=== PATIENT | female | born 1945 | race Caucasian/White ===

== ENCOUNTER 2020-04-19 06:23 | Outpatient (NON) | payer MEDICARE, SELFPAY ==
[2020-04-19 06:40] LABS: Hematocrit 34.5 % (35.0-42.0); Hemoglobin 10.8 g/dL (11.7-13.8); Mean Corpuscular HGB Conc 31.3 g/dL (32.0-36.0); Mean Corpuscular Hemoglobin 27.7 pg (27.0-31.0); Mean Corpuscular Volume 88.5 fL (78.0-102.0); Platelet Count Result 388 K/mm3 (150-420); Red Cell Distribution Width 14.1 % (11.6-14.4); White Blood Count 12.6 K/mm3 (4.8-10.8)
[2020-04-19 06:43] LABS: Appearance Urine Sl Cloudy (Clear); Bilirubin Urine 1+ (Negative); Color Urine Yellow (Yellow); Glucose Urine UA Negative (Negative); Ketones Urine Trace (Negative); Leukocyte Esterase Ur 2+ LEU/UL (Negative); Nitrate Urine Negative (Negative); Protein Urine 1+ (Negative)
[2020-04-19 06:57] LABS: Add Urine Microscopic? YES; Blood Urine Trace-Intact (Negative); WBC Urine 51-75 /hpf (0-3)
[2020-04-19 06:58] LABS: Bacteria Urine 4+ /hpf; Squamous Epithelial Cell Urine Few /hpf (Few)
[2020-04-19 07:09] LABS: Anion Gap 10 mmol/L (8-16); Blood Urea Nitrogen 20 mg/dL (7-18); Calcium 8.9 mg/dL (8.5-10.1); Carbon Dioxide 30 mmol/L (21-32); Chloride 104 mmol/L (98-108); Cholesterol 179 mg/dL (0-200); Estimated Glomerular Filt Rate > 60; Glucose 98 mg/dL (70-99); HDL Direct 12 mg/dL (40-60); LDL Cholesterol Calculated 138 mg/dL (<130); Osmolality Calculated 300 mOsm/kg (285-295); Potassium 3.3 mmol/L (3.5-5.1); Sodium 144 mmol/L (136-145); Triglycerides 146 mg/dL (0-150)
[2020-04-19 07:19] LABS: Band Neutrophils Percent 4 % (0-6); Basophils Percent Manual 0 % (0-1); Eosinophils Percent Manual 0 % (1-6); Lymphocytes Absolute Manual 1.13 K/mm3 (1.1-4.5); Lymphocytes Percent Manual 9 % (18-44); Metamyelocytes Percent 1 %; Monocytes Percent Manual 4 % (3-9); Myelocytes Percent 1 %; Neutrophils Absolute Manual 10.71 K/mm3 (1.7-7.2); Neutrophils Percent Manual 81 % (46-73); Platelet Estimate Adequate (Adequate); Total Cells Counted 100
== END 2020-04-19 06:24 ==
PROVIDERS: Visit Provider Family Medicine
DX: J44.9 Chronic obstructive pulmonary disease, unspecified (principal); N39.0 Urinary tract infection, site not specified; F32.9 Major depressive disorder, single episode, unspecified; K21.9 Gastro-esophageal reflux disease without esophagitis; R82.90 Unspecified abnormal findings in urine; I25.10 Atherosclerotic heart disease of native coronary artery without angina pectoris
CPT/HCPCS: 36415; 80048; 80061; 81001; 85025; 87077; 87086; 87088; 87186

== ENCOUNTER 2020-05-04 06:12 | Outpatient (NON) | payer MEDICARE, SELFPAY ==
[2020-05-04 06:34] LABS: Add Urine Microscopic? YES; Appearance Urine Clear (Clear); Bilirubin Urine Negative (Negative); Blood Urine Negative (Negative); Color Urine Yellow (Yellow); Glucose Urine UA Negative (Negative); Ketones Urine Negative (Negative); Leukocyte Esterase Ur Trace LEU/UL (Negative); Nitrate Urine Negative (Negative); Protein Urine Negative (Negative); Specific Grav Ur 1.015 (1.010-1.020); pH Urine 7.5 (5.0-8.0)
[2020-05-04 06:45] LABS: RBC Urine 0-2 /hpf (0-2)
[2020-05-04 06:46] LABS: Bacteria Urine 2+ /hpf; Budding Yeast Urine Present /hpf; Mucus Urine Few /lpf; Squamous Epithelial Cell Urine Moderate /hpf (Few)
== END 2020-05-04 06:13 ==
LOC: CHSLAB 06:13
PROVIDERS: Visit Provider Family Medicine
DX: N39.0 Urinary tract infection, site not specified (principal)
CPT/HCPCS: 81001; 87086; 87088

== ENCOUNTER 2020-06-04 19:10 | Emergency (ER) | payer MEDICARE, MEDICAID, SELFPAY ==
--- NOTE | ~2020-06-04 | CT_ITS ---
EXAMINATION: CT brain wo con DATE: 06/04/2020 19:59 INDICATION: Fall from bed. Weakness. TECHNIQUE: Computed tomography (CT) of the head was performed without intravenous contrast. Sagittal and coronal reconstructions were performed. The mA was adjusted according to patient size. Iterative reconstruction technique was employed. The dose-length product was 756.67 mGy-cm. COMPARISON: head CT dated 11/24/2013 FINDINGS: No fracture. No acute intracranial hemorrhage, acute infarction or abnormal extra axial fluid collect ion. There is mild scattered white matter hypoattenuation consistent with chronic small vessel ischem ic disease. Symmetric prominence of the sulci consistent with mild age-appropriate diffuse cerebral v olume loss. Ventricles are normal and symmetric. No mass/mass effect. Mild mucosal thickening in the right maxillary sinus. There is thickening and sclerosis of the nguyen of the lateral maxillary sinus es consistent with chronic sinusitis. The orbits and mastoid air cells are normal. Periapical lucency surrounding the posterior most left maxillary molar. Intracranial calcified cerebral atherosclerosis is noted. IMPRESSION: 1. No fracture or acute intracranial process. 2. Age-related changes including mild diffuse volume loss and mild scattered white matter hypoattenua tion consistent with chronic small vessel ischemic disease. Reviewed, dictated and finalized at location A. K GRINDER IMPRESSION: 1. No fracture or acute intracranial process. 2. Age-related changes including mild diffuse volume loss and mild scattered wh ite matter hypoattenuation consistent with chronic small vessel ischemic diseas e.
--- NOTE | ~2020-06-04 | XR_ITS ---
EXAMINATION: XR shoulder RT min 2V DATE: 06/04/2020 20:02 INDICATION: Right shoulder pain post fall TECHNIQUE: AP and AP oblique externally rotated views of the right shoulder were obtained. COMPARISON: 04/24/2016 FINDINGS: Internal fixation with antegrade intramedullary long staple/pins. The fracture has healed with the ri ght humeral head in near-anatomic alignment relative to the scapula. No acute fracture. Mild secondar y glenohumeral osteoarthritis. Mild acromioclavicular osteoarthritis. Right lung volume is small with mild right basilar atelectasis. Peripheral IV at the right wrist. IMPRESSION: Old healed internally fixed proximal right humeral fracture. No acute osseous abnormality. Reviewed, dictated and finalized at location A. W FEEDER IMPRESSION: Old healed internally fixed proximal right humeral fracture. No acute osseous a bnormality.
--- NOTE | ~2020-06-04 | CT_ITS ---
EXAMINATION: CT cervical spine wo con DATE: 06/04/2020 19:58 INDICATION: Fall. Weakness. TECHNIQUE: Computed tomography (CT) of the cervical spine was performed without intravenous contrast. Automated exposure control and iterative reconstruction technique were employed. The dose-length pro duct was 171.75 mGy-cm. COMPARISON: Chest radiograph dated 07/31/2018 FINDINGS: Cervical dextroscoliosis. Sagittal alignment is normal. Mild osteoarthritis at the atlantoaxial artic ulation with surrounding calcified pannus. Cervical vertebral body and disc heights are normal. Parti ally visualized chronic T6 compression fracture with 80% vertebral body height loss. No acute fractur es identified. Multilevel mild right-sided and mild to moderate left-sided cervical facet osteoarthri tis. Minimal to mild neural foraminal stenosis at a few levels on the left. No central canal stenosis . Atherosclerotic calcific calcification is at the normal caliber aortic arch and along the great ves sels including at the bilateral carotid bulbs. Cervical soft tissues are otherwise unremarkable. Biap ical pleural-parenchymal scarring. IMPRESSION: 1. Cervical dextrocurvature with mild spondylosis. No acute osseous abnormality. Reviewed, dictated and finalized at location A. H SCALER AND MIXER IMPRESSION: 1. Cervical dextrocurvature with mild spondylosis. No acute osseous abnormality .
--- NOTE | ~2020-06-04 | CT_ITS ---
EXAMINATION: CT pelvis wo con DATE: 06/04/2020 20:01 INDICATION: Right hip pain post fall from bed. TECHNIQUE: High resolution computed tomography (CT) of the pelvis was performed without intravenous c ontrast. Additional sagittal and coronal reconstructions were performed. Automated exposure control a nd iterative reconstruction technique were employed. The dose-length product was 138.96 mGy-cm. COMPARISON: CT abdomen and pelvis dated 07/09/2013 FINDINGS: Diffuse osteopenia. Stable appearance of L4 and L5 compression fractures with change of prior vertebr oplasty. Old healed proximal left femoral diaphyseal fracture with antegrade intramedullary shai and f emoral neck and intratrochanteric interlocking screw fixation. Mildly comminuted intratrochanteric fracture of the proximal right femur. The lesser trochanteric fra gment remains contiguous with the main distal diaphyseal fracture fragment. There is mild impaction w ith some proximal migration and varus angulation of the diaphyseal fragment relative to the femoral h ead and neck fragment. There is mild posterior distraction of a fragment compressing the posterior as pect of the greater trochanter. The left femoral head remains normally centered within the right acet abulum. Mild bilateral hip osteoarthritis. No other fractures in the pelvis. The uterus is not identified and has likely been surgically resected. There is a pessary in the va ginal vault. There has also been prior aortobiiliac stent grafting. IMPRESSION: 1. Acute mildly comminuted intertrochanteric fracture of the proximal right femur. 2. Old healed internally fixed proximal left femoral diaphyseal fracture. 3. Vertebroplasties for chronic L4 and L5 compression fractures. 4. Aortobiiliac stent grafting. Reviewed, dictated and finalized at location A. ECTIONAL AGENCY DIRECTOR IMPRESSION: 1. Acute mildly comminuted intertrochanteric fracture of the proximal right fem ur. 2. Old healed internally fixed proximal left femoral diaphyseal fracture. 3. Vertebroplasties for chronic L4 and L5 compression fractures. 4. Aortobiiliac stent grafting.
[2020-06-04 19:10] VITALS: BP 162/92; PULSE 99; RESP 26; TEMP 37.5; O2SAT 95
[2020-06-04] MEDS: MORPHINE SULFATE (*CRX) 2 MG/ML INJ IV PUSH (19:23)
[2020-06-04] MEDS: ONDANSETRON INJ 4 MG/2 ML VIAL IV PUSH (19:23)
--- NOTE | 2020-06-04 19:50 | ED.FALL ---
HPI - Fall General Chief Complaint: Fall Stated Complaint: 74YO female who resides at [facility] who has recently been COVID-19 positive and a known h/o Chronic pain, CEE, Vit D def, is able to do all her ADL but requires help with transfers brought into ER bu EMS after she fell while getting into her bed just SETTLEMENT AGENT. Patient c/o R Hip Pain, R Shoulder pain. Denies LOC or Head injury Related Data Home Medications Medication Instructions Recorded Confirmed alprazolam 0.5 mg PO TID 06/04/20 06/04/20 cholecalciferol (vitamin D3) 50 mcg PO DAILY 06/04/20 06/04/20 [Vitamin D3] duloxetine 60 mg PO DAILY 06/04/20 06/04/20 mirtazapine [Remeron] 30 mg PO HS 06/04/20 06/04/20 omeprazole 20 mg PO DAILY 06/04/20 06/04/20 oxycodone [OxyContin] 60 mg PO BID 06/04/20 06/04/20 sertraline 75 mg PO DAILY 06/04/20 06/04/20 Allergies Allergy/AdvReac Type Severity Reaction Status Date / Time Penicillins Allergy Intermediate Verified 03/25/11 12:39 iodine Allergy Unknown Verified 04/22/16 16:48 codeine AdvReac Severe n/v Verified 04/22/16 16:48 prednisone AdvReac Severe Nausea and Verified 04/22/16 16:48 Vomiting Sulfonamides Allergy Intermediate abdominal Uncoded 05/01/12 15:12 pain Contrast Media Allergy Unknown Uncoded 04/22/16 16:48 Review of Systems Review of Systems: All systems reviewed & are unremarkable except as noted in HPI and below Constitutional: Constitutional: Reports no additional constitutional complaints Eyes: Eyes: Reports no additional eye complaints ENT: Reports system reviewed and no additional complaints, except as documented Cardiovascular: Cardiovascular: Reports no additional cardiovascular complaints Respiratory: Respiratory: Reports no additional respiratory complaints Gastrointestinal: Gastrointestinal: Reports no additional gastrointestinal complaints Musculoskeletal: Musculoskeletal: Reports arthralgias (R Shoulder TTP 9appears chronic), Pt won't allow exam of her R Hip) Integumentary/Breasts: Skin/Breast: Reports system reviewed and no additional complaints, except as docu Neurologic: Reports focal weakness (R HIP and LE) Psychiatric: Psychiatric: Reports no additional psychiatric complaints Endocrine: Endocrine: Reports no additional endocrine complaints Hematologic/Lymphatic: Hematologic/Lymphatic: Reports no additional hematologic/lymphatic complaints Allergic/Immunologic: Allergic/Immunologic: Reports no additional allergic/immunologic complaints [facility] Family History Family History Mother Family history of osteoporosis Family history of gallbladder disease Sibling Family history of osteoporosis Family history of heart disease in male family member before age 55 Father Acute myocardial infarction Other Diabetes mellitus Hypertension Social History Social History Alcohol intake: never Exam Const: General: healthy appearing, no acute distress and alert Nutritional Appearance: thin Orientation/consciousness: patient oriented x3 Limitations: altered mental status HENMT: Head: normal to inspection Neck: Neck: normal visual inspection Chest: Chest palpation & inspection: normal inspection of the chest Resp: Effort & Inspection: normal respiratory effort Auscultation: clear to auscultation bilaterally Cardio: Rate: regular rate Rhythm: regular rhythm GI: Auscultation: normal bowel sounds Skin: General skin exam: normal color Rashes: no rashes Neuro: General: patient oriented x3 and no focal motor deficits (Won't move her RLE, won't permit exam of R) Extrem: Other: Won't Allow examination of right hip which is flexed and externally rotated. MIld anterior shoulder TTP Psych: Appearance: grossly normal Mental Status: mental status grossly normal Affect: normal affect Thought content: Yes Normal thought content present Course Co
[2020-06-04] MEDS: HYDROmorphone HCL INJ (*CRX) 2 MG/ML VIAL 1 MG IV PUSH ×2 (20:00→22:32)
[2020-06-04 20:09] LABS: Hematocrit 35.7 % (35.0-42.0); Hemoglobin 11.1 g/dL (11.7-13.8); Mean Corpuscular HGB Conc 31.1 g/dL (32.0-36.0); Mean Corpuscular Hemoglobin 27.3 pg (27.0-31.0); Mean Corpuscular Volume 87.7 fL (78.0-102.0); Mean Platelet Volume 9.9 fl (9.2-11.8); Platelet Count Result 162 K/mm3 (150-420); Red Blood Count 4.07 M/mm3 (4.20-5.40); Red Cell Distribution Width 14.7 % (11.6-14.4)
[2020-06-04 20:24] LABS: Alanine Aminotransferase 13 U/L (14-59); Albumin Level 3.1 g/dL (3.4-5.0); Alkaline Phosphatase 64 U/L (46-116); Anion Gap 10 mmol/L (8-16); Aspartate Amino Transferase 22 U/L (15-37); Bilirubin,Total 0.2 mg/dL (0.00-1.00); Blood Urea Nitrogen 11 mg/dL (7-18); Calcium 8.6 mg/dL (8.5-10.1); Carbon Dioxide 27 mmol/L (21-32); Chloride 103 mmol/L (98-108); Estimated CRCL calculation 54 ml/min; Estimated Glomerular Filt Rate > 60; Glucose 114 mg/dL (70-99); Osmolality Calculated 290 mOsm/kg (285-295); Potassium 3.8 mmol/L (3.5-5.1); Sodium 140 mmol/L (136-145); Total Protein 6.9 g/dL (6.4-8.2)
[2020-06-04 20:26] LABS: Partial Thromboplastin Time 27.1 SEC (23.90-30.70); Prothrombin Time 10.7 Seconds (9.50-12.10)
[2020-06-04 20:38] LABS: Platelet Estimate Adequate (Adequate)
[2020-06-04 20:39] LABS: Band Neutrophils Percent 0 % (0-6); Basophils Percent Manual 0 % (0-1); Eosinophils Absolute Manual 0.06 K/mm3 (0.02-0.5); Eosinophils Percent Manual 2 % (1-6); Lymphocytes Absolute Manual 1.11 K/mm3 (1.1-4.5); Lymphocytes Percent Manual 37 % (18-44); Monocytes Absolute Manual 0.15 K/mm3 (0.1-0.90); Monocytes Percent Manual 5 % (3-9); Neutrophils Absolute Manual 1.68 K/mm3 (1.7-7.2); Neutrophils Percent Manual 56 % (46-73); Total Cells Counted 100
--- NOTE | 2020-06-04 21:10 | PC.NURSE ---
RN SPOKE TO CUSTOMER AGENT AT [facility] AT 2105 FOR TRANSFER. AWAITING CALL BACK.
[2020-06-04 22:33] VITALS: BP 118/59; PULSE 96; RESP 20; TEMP 37.5; O2SAT 91
== END 2020-06-04 22:42 | disposition short-term general hospital (02) ==
PROVIDERS: Emergency Provider Family Medicine; PCP Family Medicine
DX: U07.1 COVID-19 (principal); S72.141A Displaced intertrochanteric fracture of right femur, initial encounter for closed fracture; W19.XXXA Unspecified fall, initial encounter
CPT/HCPCS: 36415; 70450; 72125; 72192; 73030; 80053; 85025; 85610; 85730; 96374; 96375; 96376; 99285; J1170; J2270; J2405

== ENCOUNTER 2020-06-05 00:15 | Inpatient (IN) | payer MEDICARE, MEDICAID, SELFPAY ==
[2020-06-05] VITALS: BP 142/92; PULSE 104; RESP 22; TEMP 37.2; O2SAT 93
--- NOTE | ~2020-06-05 | XR_ITS ---
EXAMINATION: XR abdomen obstructive series DATE: 06/08/2020 10:57 INDICATION: Vomiting TECHNIQUE: Frontal supine and upright views of the abdomen were obtained. COMPARISON: None. FINDINGS: Moderate amount of stool scattered throughout the abdomen. No dilated gas-filled loops of bowel. No free intraperitoneal gas. Right basilar opacities which could represent atelectasis and/or pneumonia. Aortobiiliac stenting. Lumbar dextroscoliosis with severe spondylosis and multiple compression fract ures at least 3 with change of prior vertebroplasty. Bilateral subtrochanteric fractures with interna l fixation of both femurs, chronic appearing on the left and recent at the right hip with skin staple s lateral to the right hip. IMPRESSION: 1. No free intraperitoneal gas or dilated gas-filled loops of bowel to suggest obstruction. 2. Right basilar opacities which could represent atelectasis and/or pneumonia. Reviewed, dictated and finalized at location A. IT RISK OFFICER
--- NOTE | ~2020-06-05 | XR_ITS ---
EXAMINATION: XR chest 1V portable DATE: 06/05/2020 10:34 INDICATION: Shortness of breath. COVID-19 positive. TECHNIQUE: A single frontal view of the chest was obtained. COMPARISON: Chest CT 11/26/2013, chest 2 views 07/31/2018 FINDINGS: The patient is rotated to her right. There is chronic mild elevation of right hemidiaphragm . There is mild atelectasis at right lung base. No pleural effusion or pneumothorax. The heart size i s normal. There is an old healed fracture of proximal right humerus with internal fixation. IMPRESSION: 1. Mild atelectasis at right lung base. Reviewed, dictated and finalized at location B. SUPERVISOR
--- NOTE | ~2020-06-05 | XR_ITS ---
. EXAMINATION: XR surgery orthopedic DATE: 06/06/2020 19:51 INDICATION: Right intertrochanteric nailing. TECHNIQUE: 3 fluoroscopic spot images of the right femur were obtained during procedure performed by Dr. Aguilar. Radiologist was not present for the imaging or procedure. The amount of fluoroscopy time us ed during this procedure was 2.1 minutes. COMPARISON: CT pelvis dated 06/04/2020 FINDINGS: Interval open reduction and internal fixation of the previously noted comminuted intratrochanteric fr acture of the proximal right femur with antegrade intramedullary shai, femoral neck dynamic compressio n screw, subtrochanteric cerclage wire and pair of distal interlocking screws. No fracture visualized bones. Alignment of the fixation appears near-courtney omic. Mild right hip osteoarthritis. IMPRESSION: 1. Expected appearance post open reduction and internal fixation of a comminuted intratrochanteric fr acture of the proximal right femur which is now in near-anatomic alignment. Reviewed, dictated and finalized at location A. CELL SEALER IMPRESSION: 1. Expected appearance post open reduction and internal fixation of a comminute d intratrochanteric fracture of the proximal right femur which is now in near-a natomic alignment.
--- NOTE | ~2020-06-05 | XR_ITS ---
EXAMINATION: XR chest 1V portable DATE: 06/08/2020 10:57 INDICATION: Hypoxia TECHNIQUE: frontal view of the chest was obtained. COMPARISON: Chest radiograph dated 06/05/2020 FINDINGS: Patient is rotated towards the right. Elevation of the right hemidiaphragm with right basilar opaciti es. Left lung remains clear. No pneumothorax or definitive pleural effusion. Heart size is normal. Ch olecystectomy clips in right upper quadrant. Old healed proximal right humeral fracture with internal fixation. IMPRESSION: 1. Persistent opacities at the right lung base along the elevated right hemidiaphragm most likely ate lectasis although differential includes pneumonia. Reviewed, dictated and finalized at location A. ER ESTHETICIAN IMPRESSION: 1. Persistent opacities at the right lung base along the elevated right hemidia phragm most likely atelectasis although differential includes pneumonia.
--- NOTE | ~2020-06-05 | CT_ITS ---
EXAMINATION: CT brain wo con DATE: 06/08/2020 11:12 INDICATION: Altered mental status TECHNIQUE: Computed tomography (CT) of the head was performed without intravenous contrast. Sagittal and coronal reconstructions were performed. The mA was adjusted according to patient size. Iterative reconstruction technique was employed. The dose-length product was 681.00 mGy-cm. COMPARISON: head CT dated 06/04/2020 FINDINGS: No acute intracranial hemorrhage, acute infarction or abnormal extra axial fluid collection. There is mild scattered white matter hypoattenuation consistent with chronic small vessel ischemic disease. S ymmetric prominence of the sulci consistent with mild age-appropriate diffuse cerebral volume loss. V entricles are normal and symmetric. No mass/mass effect. Mild mucosal thickening in the right maxilla ry sinus. Sclerotic wall thickening at the bilateral maxillary sinuses consistent with chronic sinusi tis. The orbits and mastoid air cells are normal. Intracranial calcified cerebral atherosclerosis is noted. IMPRESSION: 1. No acute intracranial process. 2. Age-related changes including mild diffuse on loss and mild scattered white matter hypoattenuation consistent with chronic small vessel ischemic disease. Reviewed, dictated and finalized at location A. USHER
[2020-06-05 00:01] VITALS: O2SAT 93
--- NOTE | 2020-06-05 00:33 | PM.IMHP ---
H&P: HPI History of Present Illness Date/Time: 06/05/20 00:33 Chief complaint: Rt. Hip Fx., COVID Narrative: This is a 74 year old female with known history of chronic pain, GERD, and depression who was just diagnosed with COVID-19 yesterday and presented to [facility] from the skilled nursing after suffering a fall while getting into her bed. She denied any head injury of loss of consciousness. The patient was evaluated at [facility] and found to have an acute mildly comminuted intertrochanteric fracture of the proximal right femur on CT scan. Ortho has been consulted by ER provider and we were asked to directly admit the patient to the hospital for further care. On my encounter with the patient she is complaining of severe right hip pain. She tells me that she doesn't even remember falling now and can't tell me any of the details around her fall. She does admit that she has had intermittent fevers and a poorly productive cough. She denies any chest pain, abdominal pain, dysuria, hematuria, diarrhea, or rectal bleeding. No other complaints. Review of Systems Review of Systems: All systems reviewed & are unremarkable except as noted in HPI and below PMFSH Past Medical History Medical History (Updated 06/05/20 @ 01:56 by Cesar Gracia MD) Chronic pain Depression GERD (gastroesophageal reflux disease) Presence of arterial stent Family History Family History Mother Family history of osteoporosis Family history of gallbladder disease Sibling Family history of osteoporosis Family history of heart disease in male family member before age 55 Father Acute myocardial infarction Other Diabetes mellitus Hypertension Social History Social History Smoking status: Former smoker Tobacco type: cigarettes Second hand tobacco smoke exposure: No Alcohol intake: never Substance use: never Substance use type: does not use Living arrangements: skilled nursing Occupation/Education: retired Gender identity (if verbalized by the patient): Female Spiritual care concerns: No Comments Past surgical history is positive for LE stent placement+ Meds Home Medications and Allergies Home Medications Medication Instructions Recorded Confirmed Type alprazolam 0.5 mg PO TID 06/04/20 06/05/20 History cholecalciferol (vitamin D3) 50 mcg PO DAILY 06/04/20 06/05/20 History [Vitamin D3] duloxetine 60 mg PO DAILY 06/04/20 06/05/20 History mirtazapine [Remeron] 30 mg PO HS 06/04/20 06/05/20 History omeprazole 20 mg PO DAILY 06/04/20 06/05/20 History oxycodone [OxyContin] 60 mg PO BID 06/04/20 06/05/20 History sertraline 75 mg PO DAILY 06/04/20 06/05/20 History Allergies Allergy/AdvReac Type Severity Reaction Status Date / Time Penicillins Allergy Intermediate Unknown Verified 06/05/20 00:08 iodine Allergy Unknown Unknown Verified 06/05/20 00:08 codeine AdvReac Severe n/v Verified 06/05/20 00:08 prednisone AdvReac Severe Nausea and Verified 06/05/20 00:08 Vomiting Sulfonamides Allergy Intermediate abdominal Uncoded 06/05/20 00:08 pain Contrast Media Allergy Unknown Unknown Uncoded 06/05/20 00:08 Exam Const: General: cooperative, no acute distress, alert, awake and acute distress (R hip pain+ ) moderate Nutritional Appearance: well nourished Orientation/consciousness: patient oriented x3 HENMT: Head: normal to inspection General nose exam: Normal external nose present Face and sinus: normal facial exam Mouth: Yes Normal oral and palatal mucosa present and Yes oropharynx normal Eyes: Pupils: Equal, round and reactive pupils present EOM: EOMs intact bilaterally Neck: Neck: supple and no JVD Thyroid: thyroid normal Lymphatic: lymphadenopathy not noted Resp: Effort & Inspection: normal respiratory effort Auscultation: clear to auscultation bilaterally Cardio: Rate: regular rate
--- NOTE | 2020-06-05 00:34 | ADMGEN ---
AT 2315, This patient, Blanka Stiles, was admitted to 3 [facility] Surg Room 316-01. Patient/family oriented to hospital policies and general routines including ID bracelet, bed and alarms, visiting hours, pain management, procedures, bathroom and other care routines, personal items, smoking policy, room service/diet, and visiting hours. Information on how to activate the Rapid Response Team has been discussed. Patient/Family are encouraged to report perceived risks to care and to ask questions if they do not understand what they are told or what they should do.
[2020-06-05] MEDS: HYDROmorphone HCL INJ (*CRX) 1 MG/ML SYR IV PUSH ×4 (00:44→16:01)
[2020-06-05] MEDS: SODIUM CHLORIDE 0.9% IV 1,000 ML 100 ML IV CONT ×2 (00:45→11:29)
[2020-06-05 03:07] VITALS: O2SAT 94
[2020-06-05 04:00] VITALS: BP 130/68; PULSE 100; RESP 20; TEMP 37.3; O2SAT 94
[2020-06-05 05:52] VITALS: BMI 23.2
[2020-06-05 06:57] LABS: Basophils Percent Auto 0.2 % (0.2-1.2); Eosinophils Percent Auto 0.2 % (0-4.4); Hematocrit 30.2 % (37.0-47.0); Hemoglobin 9.7 g/dL (12.0-15.0); Immature Granulocyte Absolute 0.02 K/mm3 (0.00-0.031); Immature Granulocyte Percent A 0.4 % (0-0.5); Immature Platelet Fraction Pct 2.6 % (0.9-11.2); Lymphocytes Absolute Auto 0.84 K/mm3 (0.9-3.2); Lymphocytes Percent Auto 17.5 % (18.3-44.2); Mean Corpuscular HGB Conc 32.1 g/dl (32-36); Mean Corpuscular Hemoglobin 27.5 pg (26-34); Mean Corpuscular Volume 85.6 fl (80-100); Monocytes Absolute Auto 0.3 K/mm3 (0.1-0.6); Monocytes Percent Auto 6.3 % (2.6-8.5); Neutrophils Absolute Auto 3.6 K/mm3 (1.3-6.7); Neutrophils Percent Auto 75.4 % (45.5-73.1); Platelet Count Result 137 k/mm3 (150-375); Red Blood Count 3.53 M/mm3 (4.2-5.4); Red Cell Distribution Width 14.6 % (11.5-14.5); White Blood Count 4.8 K/mm3 (4.5-10.0)
[2020-06-05 07:18] LABS: Anion Gap 3 mmol/L (8-16); Blood Urea Nitrogen 10 mg/dL (7-17); Calcium 8.1 mg/dL (8.4-10.2); Carbon Dioxide 28 mmol/L (22-30); Chloride 107 mmol/L (98-107); Estimated CRCL calculation 96 ml/min; Estimated Glomerular Filt Rate > 60; Glucose 114 mg/dL (65-105); Magnesium 1.7 mg/dL (1.6-2.3); Potassium 3.8 mmol/L (3.4-5.0); Sodium 138 mmol/L (137-145)
[2020-06-05] MEDS: MAGNESIUM SULF 2 GM/WATER 50ML 2 GM/50 ML BAG IVPB (09:42)
--- NOTE | 2020-06-05 09:43 | PM.CNOR ---
Assessment and Plan Assessment and plan (1) Intertrochanteric fracture of right hip: Qualifiers: Encounter type: initial encounter Fracture type: closed Fracture alignment: displaced Qualified Code(s): S72.141A - Displaced intertrochanteric fracture of right femur, initial encounter for closed fracture Code(s): S72.141A - Displaced intertrochanteric fracture of right femur, initial encounter for closed fracture Status: Acute Assessment and Plan: 74-year-old female with a displaced right intertrochanteric hip fracture. She had been ambulatory previous to this by the reports I received. She is COVID positive and knees a little bit of fine tuning medically. As soon as we are able to, we will proceed with surgical stabilization of the right IT hip fracture. Thank you for the consultation. History of Present Illness HPI Consult date: 06/05/20 Consult reason: fracture (RIGHT IT HIP FRACTURE) Chief complaint: Rt. Hip Fx., COVID Narrative: 74-year-old female who is a long term resident. She fell yesterday but is not sure how. She was seen in the ER instead on were right IT hip fracture was diagnosed. She is also COVID positive. She was transferred here for further management of this issue. Review of Systems Constitutional: Constitutional: Reports no additional constitutional complaints Eyes: Eyes: Reports no additional eye complaints ENT: Reports system reviewed and no additional complaints, except as documented Cardiovascular: Cardiovascular: Denies chest pain at rest and Denies dyspnea Respiratory: Respiratory: Reports no additional respiratory complaints and Denies dyspnea Gastrointestinal: Gastrointestinal: Reports no additional gastrointestinal complaints Musculoskeletal: Musculoskeletal: Reports as per HPI Neurologic: Reports as per HPI [facility] Past Medical History Medical History (Updated 06/05/20 @ 09:47 by Sean Aguilar MD) Chronic pain Depression GERD (gastroesophageal reflux disease) Intertrochanteric fracture of right hip Presence of arterial stent Surgical History Surgical History (Updated 06/05/20 @ 09:49 by Sean Aguilar MD) History of fracture of left hip Left trochanteric nail History of right shoulder fracture Repair with Wan staple Family History Family History Mother Family history of osteoporosis Family history of gallbladder disease Sibling Family history of osteoporosis Family history of heart disease in male family member before age 55 Father Acute myocardial infarction Other Diabetes mellitus Hypertension Social History Social History Smoking status: Former smoker Tobacco type: cigarettes Second hand tobacco smoke exposure: No Alcohol intake: never Substance use: never Substance use type: does not use Living arrangements: long term Occupation/Education: retired Gender identity (if verbalized by the patient): Female Spiritual care concerns: No Meds Home Medications and Allergies Home Medications Medication Instructions Recorded Confirmed Type alprazolam 0.5 mg PO TID 06/04/20 06/05/20 History cholecalciferol (vitamin D3) 50 mcg PO DAILY 06/04/20 06/05/20 History [Vitamin D3] duloxetine 60 mg PO DAILY 06/04/20 06/05/20 History mirtazapine [Remeron] 30 mg PO HS 06/04/20 06/05/20 History omeprazole 20 mg PO DAILY 06/04/20 06/05/20 History oxycodone [OxyContin] 60 mg PO BID 06/04/20 06/05/20 History sertraline 75 mg PO DAILY 06/04/20 06/05/20 History Allergies Allergy/AdvReac Type Severity Reaction Status Date / Time Penicillins Allergy Intermediate Unknown Verified 06/05/20 00:08 iodine Allergy Unknown Unknown Verified 06/05/20 00:08 codeine AdvReac Severe n/v Verified 06/05/20 00:08 prednisone AdvReac Severe Nausea and Verified 06/05/20 00:08 Vomiting Sulfonamides Allergy In
--- NOTE | 2020-06-05 10:00 | ECG_ITS ---
Measurements Intervals [place] Rate: 96 P: 60 WI: 132 QRS: 54 QRSD: 89 T: 265 QT: 286 QTc: 363 Interpretive Statements SINUS RHYTHM CANNOT RULE OUT SEPTAL INFARCT, AGE INDETERMINATE BORDERLINE ST-T WAVE ABNORMALITY- DIFFUSE LEADS BASELINE ARTIFACT- I, II, III, AVR, AVL, AVF, V1-V6 ABNORMAL ECG Electronically Signed On 06-05-2020 10:51:46 OCCUPATIONAL PSYCHOLOGIST by Joshua Doll D.O.
[2020-06-05] MEDS: ALPRAZolam (*CRX) 0.5 MG TABLET PO ×2 (11:29→18:02)
[2020-06-05 12:00] VITALS: BP 139/70; PULSE 86; RESP 16; TEMP 36.3; O2SAT 97
[2020-06-05] MEDS: SERTRALINE HCL 50 MG TABLET PO (16:02)
[2020-06-05] MEDS: PANTOPRAZOLE SODIUM IV 40 MG VIAL IV PUSH (16:03)
[2020-06-05] MEDS: DULoxetine HCL 60 MG CAPSULE.DR PO (16:03)
[2020-06-05] MEDS: SERTRALINE HCL 25 MG TABLET PO (16:03)
[2020-06-05] MEDS: CHOLECALCIFEROL 1,000 UNITS TABLET 2000 UNITS PO (16:06)
--- NOTE | 2020-06-05 16:22 | PM.IMPN ---
Progress Note: A&P Assessment and Plan (1) Closed right hip fracture: Qualifiers: Encounter type: initial encounter Qualified Code(s): S72.001A - Fracture of unspecified part of neck of right femur, initial encounter for closed fracture Code(s): S72.001A - Fracture of unspecified part of neck of right femur, initial encounter for closed fracture Status: Acute Assessment and Plan: Transferred from [facility] for right hip fracture after a [facility] at [facility]. Imaging demonstrates a mildly comminuted intertrochanteric fracture of the proximal right femur. Discussed case with Dr. Aguilar and appreciate his input; noted his plan for surgical stabilization possibly tomorrow. Postoperative wound care, pain control, DVT prophylaxis per Dr. Aguilar's recommendations. Low to moderate perioperative risk based on age; respiratory status alone appears stable despite testing positive for COVID (no respiratory failure or pneumonia at present). (2) COVID-19: Code(s): U07.1 - COVID-19 Status: Acute Assessment and Plan: Patient tested positive for COVID-19 on 06/04/2020 at the [facility]. (Hard copy of test result on chart). At this point she is asymptomatic, not hypoxic or requiring supplemental oxygen. Continue droplet isolation and monitor respiratory status. Chest x-ray demonstrates some mild atelectasis right lung base. Encourage incentive spirometer. Supportive care. (3) Chronic pain: Qualifiers: Chronic pain type: other chronic pain Qualified Code(s): G89.29 - Other chronic pain Code(s): G89.29 - Other chronic pain Status: Chronic Assessment and Plan: Anticipate may have problems with pain control postoperatively as she is maintained on high doses of oxycodone for treatment of chronic back pain by her PCP. Continue her home pain regimen for now. (4) GERD (gastroesophageal reflux disease): Qualifiers: Esophagitis presence: esophagitis presence not specified Qualified Code(s): K21.9 - Gastro-esophageal reflux disease without esophagitis Code(s): K21.9 - Gastro-esophageal reflux disease without esophagitis Status: Chronic Assessment and Plan: No acute issues today. Continue PPI. (5) Depression: Qualifiers: Depression Type: unspecified Qualified Code(s): F32.9 - Major depressive disorder, single episode, unspecified Code(s): F32.9 - Major depressive disorder, single episode, unspecified Status: Chronic Assessment and Plan: Depression with anxiety. She is anxious morning. Continue home sertraline with alprazolam. Additional Plan Lives at [facility]. Subjective Date/time seen: 06/05/20 1200 Interval history: Ms. Stiles is a 74yo F with chronic back pain and anxiety admitted for right hip fracture, known COVID positive [facility]/04/[facility]. She had a rough morning however she is feeling better after home Xanax has been resumed. She admits to feeling anxious. She reports right hip pain is 10/10 severity. She denies chest pain, shortness of breath, or cough. She denies nausea or vomiting. Review of Systems Review of Systems: All systems reviewed & are unremarkable except as noted in HPI and below Exam Narrative: Exam Narrative: General: Female resting comfortably supine in bed in no acute distress. HEENT: Normocephalic, EOMI, oral mucosa tacky. Cardiovascular: Rate and rhythm are regular. Respiratory: Lungs clear to auscultation bilaterally. Respirations even and non-labored. Tolerating room air. Abdomen: Soft, non-tender, non-distended, bowel sounds present. Extremities: Peripheral pulses intact. Right lower
--- NOTE | 2020-06-05 18:49 | PC.NURSE ---
1700 attempted to call pt son to get consent for surgery message left.
[2020-06-05 20:00] VITALS: BP 144/79; PULSE 80; RESP 20; TEMP 37.4; O2SAT 95
[2020-06-05] MEDS: MIRTAZAPINE 30 MG TABLET PO (21:06)
[2020-06-05] MEDS: oxyCODONE HCL (*CRX) 20 MG TAB SR 12HR 60 MG PO (21:06)
[2020-06-06] VITALS (14 sets, daily range): BP systolic 119–155; BP diastolic 54–78; PULSE 86–100; RESP 14–20; TEMP 36.1–37.6; O2SAT 93–100
[2020-06-06] MEDS: HYDROmorphone HCL INJ (*CRX) 1 MG/ML SYR IV PUSH (04:33)
[2020-06-06 07:22] LABS: Basophils Percent Auto 0.3 % (0.2-1.2); Eosinophils Absolute Auto 0.2 K/mm3 (0-0.3); Eosinophils Percent Auto 2.4 % (0-4.4); Hematocrit 32.7 % (37.0-47.0); Hemoglobin 9.8 g/dL (12.0-15.0); Immature Granulocyte Absolute 0.04 K/mm3 (0.00-0.031); Immature Granulocyte Percent A 0.6 % (0-0.5); Immature Platelet Fraction Pct 1.7 % (0.9-11.2); Lymphocytes Absolute Auto 1.18 K/mm3 (0.9-3.2); Mean Corpuscular Hemoglobin 26.9 pg (26-34); Mean Corpuscular Volume 89.8 fl (80-100); Mean Platelet Volume 10.2 fl (7.4-10.4); Monocytes Absolute Auto 0.5 K/mm3 (0.1-0.6); Monocytes Percent Auto 8.5 % (2.6-8.5); Neutrophils Absolute Auto 4.3 K/mm3 (1.3-6.7); Neutrophils Percent Auto 69.2 % (45.5-73.1); Platelet Count Result 151 k/mm3 (150-375); Red Blood Count 3.64 M/mm3 (4.2-5.4); Red Cell Distribution Width 14.9 % (11.5-14.5); White Blood Count 6.2 K/mm3 (4.5-10.0)
[2020-06-06 07:36] LABS: Alanine Aminotransferase 10 U/L (4-35); Albumin Level 3.2 g/dL (3.5-5.1); Alkaline Phosphatase 49 U/L (38-126); Anion Gap 12 mmol/L (8-16); Aspartate Amino Transferase 40 U/L (14-36); Bilirubin,Total 0.6 mg/dL (0.2-1.3); Blood Urea Nitrogen 7 mg/dL (7-17); Calcium 8.2 mg/dL (8.4-10.2); Carbon Dioxide 21 mmol/L (22-30); Chloride 104 mmol/L (98-107); Estimated CRCL calculation 96 ml/min; Estimated Glomerular Filt Rate > 60; Glucose 98 mg/dL (65-105); Magnesium 2.2 mg/dL (1.6-2.3); Potassium 3.9 mmol/L (3.4-5.0); Sodium 137 mmol/L (137-145)
[2020-06-06] MEDS: DULoxetine HCL 60 MG CAPSULE.DR PO (08:33)
[2020-06-06] MEDS: SERTRALINE HCL 25 MG TABLET PO (08:33)
[2020-06-06] MEDS: oxyCODONE HCL (*CRX) 20 MG TAB SR 12HR 60 MG PO ×2 (08:33→21:30)
[2020-06-06] MEDS: ALPRAZolam (*CRX) 0.5 MG TABLET PO ×2 (08:33→13:07)
[2020-06-06] MEDS: CHOLECALCIFEROL 1,000 UNITS TABLET 2000 UNITS PO (08:33)
[2020-06-06] MEDS: SERTRALINE HCL 50 MG TABLET PO (08:33)
[2020-06-06] MEDS: PANTOPRAZOLE SODIUM IV 40 MG VIAL IV PUSH (08:34)
--- NOTE | 2020-06-06 08:47 | WPDANESEPPF ---
Anes - Initial Pre Proc Eval Procedure: Operation Date: 06/06/20 11:00 Proposed Procedures p Right Intertrochanteric Nail - Sean Aguilar MD Date/Time: 06/06/20 08:47 Pre Op Diagnosis: Rt. Hip Fx., COVID Patient Data Age: 74 Gender: F Height: 1.7 m Weight: 67.2 kg Last Vital Signs Temp 36.8 C 06/06/20 08:00 Pulse 93 06/06/20 08:00 Resp 18 06/06/20 08:00 BP 137/63 06/06/20 08:00 Pulse Ox 95 06/06/20 08:00 Allergies Allergy/AdvReac Type Severity Reaction Status Date / Time Penicillins Allergy Intermediate Unknown Verified 06/05/20 00:08 iodine Allergy Unknown Unknown Verified 06/05/20 00:08 codeine AdvReac Severe n/v Verified 06/05/20 00:08 prednisone AdvReac Severe Nausea and Verified 06/05/20 00:08 Vomiting Sulfonamides Allergy Intermediate abdominal Uncoded 06/05/20 00:08 pain Contrast Media Allergy Unknown Unknown Uncoded 06/05/20 00:08 Home Medications Medication Instructions Recorded Confirmed Type alprazolam 0.5 mg PO TID 06/04/20 06/05/20 History cholecalciferol (vitamin D3) 50 mcg PO DAILY 06/04/20 06/05/20 History [Vitamin D3] duloxetine 60 mg PO DAILY 06/04/20 06/05/20 History mirtazapine [Remeron] 30 mg PO HS 06/04/20 06/05/20 History omeprazole 20 mg PO DAILY 06/04/20 06/05/20 History oxycodone [OxyContin] 60 mg PO BID 06/04/20 06/05/20 History sertraline 75 mg PO DAILY 06/04/20 06/05/20 History Laboratory Tests 06/06/20 06/06/20 07:02 07:02 WBC 6.2 K/mm3 K/mm3 (4.5-10.0) RBC 3.64 M/mm3 L M/mm3 (4.2-5.4) Hgb 9.8 g/dL L g/dL (12.0-15.0) Hct 32.7 % L % (37.0-47.0) MCV 89.8 fl fl (80-100) MCH 26.9 pg pg (26-34) MCHC 30.0 g/dl L g/dl (32-36) RDW 14.9 % H % (11.5-14.5) Plt Count 151 k/mm3 k/mm3 (150-375) MPV 10.2 fl fl (7.4-10.4) Immature Gran % (Auto) 0.6 % H % (0-0.5) Neut % (Auto) 69.2 % % (45.5-73.1) Lymph % (Auto) 19.0 % % (18.3-44.2) [place] % (Auto) 8.5 % % (2.6-8.5) Eos % (Auto) 2.4 % % (0-4.4) Baso % (Auto) 0.3 % % (0.2-1.2) Lymph # (Auto) 1.18 K/mm3 K/mm3 (0.9-3.2) [place] # (Auto) 0.5 K/mm3 K/mm3 (0.1-0.6) Eos # (Auto) 0.2 K/mm3 K/mm3 (0-0.3) Baso # (Auto) 0.0 K/mm3 K/mm3 (0.0-0.1) Abs Immat Gran (auto) 0.04 K/mm3 H K/mm3 (0.00-0.031) Absolute Neuts (auto) 4.3 K/mm3 K/mm3 (1.3-6.7) Absolute Nucleated RBC 0.0 K/mm3 K/mm3 (0.0-0.012) Nucleated RBC % 0.0 % % (0.0-0.2) % Immature Plt Fraction 1.7 % % (0.9-11.2) Sodium 137 mmol/L mmol/L (137-145) Potassium 3.9 mmol/L mmol/L (3.4-5.0) Chloride 104 mmol/L mmol/L (98-107) Carbon Dioxide 21 mmol/L L mmol/L (22-30) Anion Gap 12 mmol/L mmol/L (8-16) BUN 7 mg/dL mg/dL (7-17) Creatinine 0.40 mg/dL L mg/dL (0.7-1.0) Estim Creat Clear Calc 96 ml/min ml/min Estimated GFR > 60 (59 - ) Glucose 98 mg/dL mg/dL (65-105) Calcium 8.2 mg/dL L mg/dL (8.4-10.2) Magnesium 2.2 mg/dL mg/dL (1.6-2.3) Total Bilirubin 0.6 mg/dL mg/dL (0.2-1.3) AST 40 U/L H U/L (14-36) ALT 10 U/L U/L (4-35) Alkaline Phosphatase 49 U/L U/L (38-126) Total Protein 6.0 g/dL L g/dL (6.3-8.2) Albumin 3.2 g/dL L g/dL (3.5-5.1) Other Studies: CT pelvis: Radiologist's impression: 1. Acute mildly comminuted intertrochanteric fracture of the proximal right femur. 2. Old healed internally fixed proximal left femoral diaphyseal fracture. 3. Vertebroplasties for chronic L4 and L5 compression fractures. 4. Aortobiiliac stent grafting. Patient hx anesthesia problems: none Family hx anesthesia problems: none [facility] Past Medical History Medical History (Updated 06/07/20 @ 11:21 by Sean Aguilar MD) Anxiety Chronic narcotic use Chronic pain COVID-19 Depression GERD (siria
[2020-06-06] MEDS: ACETAMINOPHEN 325 MG TABLET 650 MG PO (13:07)
[2020-06-06] MEDS: ceFAZolin 2 GM/D5W 50 ML 2 GM/50 ML BAG IVPB (15:52)
--- NOTE | 2020-06-06 15:54 | WPDHPUPDATE1 ---
History and Physical Update Update Date/Time: 06/06/20 15:54 History and Physical has been reviewed, including an updated exam of the patient. There are NO changes in the patient's condition. Risks, benefits, and alternatives have been discussed and questions answered. Patient agrees to proceed with procedure.
--- NOTE | 2020-06-06 16:40 | PM.EVENT ---
Event Note Event Note Event Note: Patient was not seen 06/06/20 by the hospitalist service as she was off the floor in surgery
[2020-06-06] MEDS: ceFAZolin SODIUM 1 GM VIAL IV PUSH (17:16)
--- NOTE | 2020-06-06 17:51 | PM.PROC ---
Procedure Note - Detailed Date of procedure: 06/06/20 Pre-op diagnosis: Rt. Hip Fx., COVID Right subtrochanteric hip fracture Post-op diagnosis: same Procedure performed: ORIF right femur fracture Description of procedure: The patient was identified and proper site identified. She was taken to the operating room and after general anesthetic induction and intubation was transferred to the fracture table position her supine taking care to pad her torso and extremities. The right hip and thigh was prepped and draped in usual sterile fashion. A longitudinal incision was made over the subtrochanteric portion of the femur. Subcutaneous tissue sharply dissected down to the ID band which was divided in line with the incision. The fracture site was identified and by applying traction and some rotation was able to be reduced anatomically. It was provisionally secured with a 2.0 mm [employer] cable. Attention was then turned to the femur. A starting hole was made through a separate incision at the tip of the trochanter through which a guide shai was inserted into the intramedullary canal. Position was verified fluoroscopically. The femur was reamed to 11 mm distally and 13 mm proximally. A 38 cm 125? 9 mm nail was then inserted the appropriate level. Through the initial incision a guide pin was able to be placed in the femoral neck and head under fluoroscopic visualization. Over this a 95 mm lag screw was placed and secured with the set screw. Targeting device was removed from the femur and then under fluoroscopic visualization through two separate stab incisions, two distal interlocking screws were placed through the distal aspect of the shai. Their position was assessed fluoroscopically as well. The overall reduction of hardware placement was noted to be satisfactory. Wounds were irrigated with sterile antibiotic solution. The large proximal incision was reapproximated with a looped PDS in the ITB band fascia in 0 PDS in the deeper layers of the subcu. The more proximal incision was closed with 0 Vicryl in the fascia and 0 Vicryl in the deeper tissues. The skin was reapproximated with absorbable suture and lisa at each incision. Sterile dressing was applied. She tolerated the procedure well. She was awakened extubated and transferred to a bed. Because of the COVID situation, she was recovered in the operating room after which she will be transferred back to her room upstairs on the floor. There were no known intraoperative complications. Estimated blood loss was 50 mL. She received perioperative antibiotics. Anesthesia: GLMA Surgeon: Sean Aguilar MD Manager Warehouse: Nasim Johnson Estimated blood loss (mL): 50 Drains: No Packing: No Pathology: none sent Complications: No immediate complications Condition: stable Disposition: other (Recovered in OR and then taken to floor.)
[2020-06-06] MEDS: LACTATED RINGERS 1,000 ML 30 ML IV CONT (17:57)
--- NOTE | 2020-06-06 18:30 | PC.NURSE ---
To OR per bed, IV saline locked. SBAR faxed to preop.
[2020-06-06] MEDS: fentaNYL CITRATE INJ (*CRX) 100 MCG/2 ML VIAL 25 MCG IV PUSH (18:54)
--- NOTE | 2020-06-06 19:05 | PC.NURSE ---
Returned to room 316 per hospital bed from OR.
[2020-06-06] MEDS: SODIUM CHLORIDE 0.9% IV 1,000 ML 125 ML IV CONT (19:20)
--- NOTE | 2020-06-06 20:15 | PC.NURSE ---
Return call made to Moy Stiles, son, but no answer received.
--- NOTE | 2020-06-06 20:22 | PC.NURSE ---
Call received from Moy Go, son, regarding condition update following procedure.
[2020-06-06] MEDS: MIRTAZAPINE 30 MG TABLET PO (21:29)
[2020-06-06] MEDS: ACETAMINOPHEN 500 MG TABLET 1000 MG PO (21:30)
[2020-06-06] MEDS: ASPIRIN 325 MG ENTERIC TABLET PO (21:34)
[2020-06-07] VITALS (10 sets, daily range): BP systolic 107–136; BP diastolic 48–61; PULSE 88–99; RESP 14–20; TEMP 36.2–37.2; O2SAT 84–99
[2020-06-07] MEDS: ACETAMINOPHEN 500 MG TABLET 1000 MG PO ×3 (05:52→21:17)
[2020-06-07] MEDS: SODIUM CHLORIDE 0.9% IV 1,000 ML 125 ML IV CONT ×2 (06:09→12:32)
[2020-06-07 06:48] LABS: Basophils Percent Auto 0.1 % (0.2-1.2); Hematocrit 29.1 % (37.0-47.0); Hemoglobin 8.9 g/dL (12.0-15.0); Immature Granulocyte Absolute 0.02 K/mm3 (0.00-0.031); Immature Granulocyte Percent A 0.2 % (0-0.5); Immature Platelet Fraction Pct 5.1 % (0.9-11.2); Lymphocytes Absolute Auto 1.17 K/mm3 (0.9-3.2); Lymphocytes Percent Auto 13.4 % (18.3-44.2); Mean Corpuscular HGB Conc 30.6 g/dl (32-36); Mean Corpuscular Hemoglobin 27.6 pg (26-34); Mean Corpuscular Volume 90.1 fl (80-100); Mean Platelet Volume 10.5 fl (7.4-10.4); Monocytes Absolute Auto 0.5 K/mm3 (0.1-0.6); Monocytes Percent Auto 6.1 % (2.6-8.5); Neutrophils Percent Auto 80.2 % (45.5-73.1); Platelet Count Result 144 k/mm3 (150-375); Red Blood Count 3.23 M/mm3 (4.2-5.4); White Blood Count 8.7 K/mm3 (4.5-10.0)
[2020-06-07 07:06] LABS: Anion Gap 4 mmol/L (8-16); Blood Urea Nitrogen 15 mg/dL (7-17); Calcium 8.4 mg/dL (8.4-10.2); Carbon Dioxide 33 mmol/L (22-30); Chloride 103 mmol/L (98-107); Estimated CRCL calculation 58 ml/min; Estimated Glomerular Filt Rate > 60; Glucose 113 mg/dL (65-105); Potassium 4.3 mmol/L (3.4-5.0); Sodium 140 mmol/L (137-145)
--- NOTE | 2020-06-07 07:29 | WPDANESPN ---
Anes - Prog Note Post-Op Date/Time: 06/07/20 07:29 Cardiovascular status: normal Respiratory status: other (2L NC) Airway patency: baseline Mental status: baseline Post-Op hydration status: normal Vital Signs: Last Vital Signs Temp 36.2 C L 06/07/20 04:00 Pulse 93 06/07/20 04:00 Resp 16 06/07/20 04:00 BP 117/59 L 06/07/20 04:00 Pulse Ox 94 06/07/20 06:15 Pain Score (VAS): discussed condition with Rhoda RN I/O: Intake & Output 06/06/20 06/06/20 06/07/20 15:59 23:59 07:59 Intake Total 200 1450 Output Total 250 Balance 200 1200 Laboratory Tests 06/07/20 06:28 06/07/20 06:28 06/06/20 06/07/20 06/07/20 07:02 06:28 06:28 WBC 8.7 RBC 3.23 L Hgb 8.9 L Hct 29.1 L MCV 90.1 MCH 27.6 MCHC 30.6 L RDW 15.0 H Plt Count 144 L MPV 10.5 H Immature Gran % (Auto) 0.2 Neut % (Auto) 80.2 H Lymph % (Auto) 13.4 L [place] % (Auto) 6.1 Eos % (Auto) 0.0 Baso % (Auto) 0.1 L Lymph # (Auto) 1.17 [place] # (Auto) 0.5 Eos # (Auto) 0.0 Baso # (Auto) 0.0 Abs Immat Gran (auto) 0.02 Absolute Neuts (auto) 7.0 H Absolute Nucleated RBC 0.0 Nucleated RBC % 0.0 % Immature Plt Fraction 5.1 Sodium 137 140 Potassium 3.9 4.3 Chloride 104 103 Carbon Dioxide 21 L 33 H Anion Gap 12 4 L BUN 7 15 D Creatinine 0.40 L 0.70 Estim Creat Clear Calc 96 58 Estimated GFR > 60 > 60 Glucose 98 113 H Calcium 8.2 L 8.4 Magnesium 2.2 Total Bilirubin 0.6 AST 40 H ALT 10 Alkaline Phosphatase 49 Total Protein 6.0 L Albumin 3.2 L Patient Feedback: Patient COVID + discussed post anesthesia status with her nurse. pt not wanting to move around much and is being weaned off of O2
[2020-06-07] MEDS: SERTRALINE HCL 50 MG TABLET PO (09:28)
[2020-06-07] MEDS: SERTRALINE HCL 25 MG TABLET PO (09:28)
[2020-06-07] MEDS: CHOLECALCIFEROL 1,000 UNITS TABLET 2000 UNITS PO (09:28)
[2020-06-07] MEDS: ASPIRIN 325 MG ENTERIC TABLET PO ×2 (09:28→21:17)
[2020-06-07] MEDS: DOCUSATE SODIUM 100 MG CAPSULE PO ×2 (09:28→17:56)
[2020-06-07] MEDS: DULoxetine HCL 60 MG CAPSULE.DR PO (09:28)
[2020-06-07] MEDS: PANTOPRAZOLE SODIUM IV 40 MG VIAL IV PUSH (09:29)
[2020-06-07] MEDS: oxyCODONE HCL (*CRX) 20 MG TAB SR 12HR 60 MG PO (09:36)
[2020-06-07] MEDS: ALPRAZolam (*CRX) 0.5 MG TABLET PO ×3 (09:36→21:18)
--- NOTE | 2020-06-07 11:17 | PM.PNORT ---
Progress Note: A&P Assessment and Plan (1) History of fracture of right hip: Code(s): Z87.81 - Personal history of (healed) traumatic fracture Status: Acute Assessment and Plan: 74-year-old female postop day one ORIF right peritrochanteric hip fracture. Seems comfortable that is somnolent. Will try to back off on the pain medication a bit at this point. Will start therapy when able. Following. Subjective Subjective Date/Time Seen: 06/07/20 11:17 Post Op day: 1 Principal diagnosis: Right hip fracture Interval history: 74-year-old female postop day one ORIF right hip fracture. Uneventful overnight. Exam Const: General: other (Somnolent) Nutritional Appearance: well nourished Extrem: Other: Grossly neurovascular status intact right lower extremity. Right hip wounds dry. Calves negative Objective Data Vital Signs Vital Signs: Vital Signs - 24 hr 06/06/20 12:00 06/06/20 17:46 06/06/20 18:00 Temperature 97.9 F 97.0 F L Pulse Rate 96 86 96 Respiratory Rate 18 14 14 Blood Pressure 119/62 152/66 H 145/67 H Pulse Oximetry 95 99 94 06/06/20 18:15 06/06/20 18:30 06/06/20 18:43 Temperature Pulse Rate 100 100 98 Respiratory Rate 14 14 14 Blood Pressure 136/54 L 126/68 127/78 Pulse Oximetry 94 98 98 06/06/20 19:00 06/06/20 19:40 06/06/20 20:30 Temperature 97.5 F L Pulse Rate 100 92 Respiratory Rate 14 16 16 Blood Pressure 125/70 132/58 L Pulse Oximetry 96 93 97 06/07/20 00:00 06/07/20 02:00 06/07/20 04:00 Temperature 98.8 F 97.2 F L Pulse Rate 99 93 Respiratory Rate 16 20 16 Blood Pressure 136/61 117/59 L Pulse Oximetry 84 L 96 98 06/07/20 06:15 06/07/20 08:00 Temperature 97.7 F Pulse Rate 88 Respiratory Rate 14 Blood Pressure 108/48 L Pulse Oximetry 94 99 Intake/Output Intake/Output: Intake & Output 06/04/20 06/05/20 06/06/20 06/07/20 23:59 23:59 23:59 23:59 Intake Total 1290 / 1290 500 / 500 1450 / 1450 Output Total 700 / 700 1000 / 1000 250 / 250 Balance 590 / 590 -500 / -500 1200 / 1200 Meds/Results Medications: Active Medications Generic Name Dose Route Start Last Admin Trade Name Freq PRN Reason Stop Dose Admin Acetaminophen 1,000 mg 06/06/20 22:00 06/07/20 05:52 Acetaminophen 500 Mg Tablet PO 06/13/20 22:01 1,000 mg Q8H IVONNE Administration Alprazolam 0.5 mg 06/05/20 11:30 06/07/20 09:36 Alprazolam (*Crx) 0.5 Mg Tablet PO 0.5 mg TID IVONNE Administration Aspirin 325 mg 06/06/20 21:00 06/07/20 09:28 Aspirin 325 Mg Enteric Tablet PO 325 mg Q12HR IVONNE Administration Docusate Sodium 100 mg 06/07/20 09:00 06/07/20 09:28 Docusate Sodium 100 Mg Capsule PO 100 mg BID IVONNE Administration Duloxetine HCl 60 mg 06/05/20 11:15 06/07/20 09:28 Duloxetine Hcl 60 Mg Capsule.Dr PO 60 mg DAILY IVONNE Administration Cefazolin Sodium 1 gm in 50 mls @ 100 mls/hr 06/06/20 23:00 06/07/20 06:39 Ancef 1 Gm/D5w 50 Ml Pm IVPB 06/07/20 15:29 Infused Q8H IVONNE Infusion Sodium Chloride 1,000 mls @ 125 mls/hr 06/06/20 19:01 06/07/20 06:09 Normal Saline Iv IV CONT 125 mls/hr .Q8H IVONNE Administration Magnesium Hydroxide 30 ml 06/06/20 19:01 Magnesium Hydroxide Susp 30 Ml Udc PO BID PRN Constipation Mirtazapine 30 mg 06/05/20 21:00 06/06/20 21:29 Mirtazapine 30 Mg Tablet PO 30 mg HS IVONNE Administration Naloxone HCl 0.1 mg 06/06/20 19:01 Naloxone Hcl 0.4 Mg/Ml Vial IV PUSH Q2M PRN Opiate Reversal Ondansetron HCl 4 mg 06/06/20 08:42 Ondansetron Inj 4 Mg/2 Ml Vial IV PUSH ONCE PRN Nausea Ondansetron HCl 4 mg 06/06/20 19:01 Ondansetron Inj 4 Mg/2 Ml Vial IV PUSH Q4H PRN Nausea And Vomiting Oxycodone HCl 60 mg 06/05/20 21:00 06/07/20 09:36 Oxycodone Hcl (*Crx) 20 Mg Tab Sr 12hr PO 60 mg Q12HR IVONNE Administration Pantoprazole Sodium 40 mg 06/05/20 11:15 06/07/20 09:29 Pantoprazole Sodium Iv 40 Mg Vial IV
--- NOTE | 2020-06-07 16:28 | PM.IMPN ---
Progress Note: A&P Assessment and Plan (1) Closed right hip fracture: Qualifiers: Encounter type: initial encounter Qualified Code(s): S72.001A - Fracture of unspecified part of neck of right femur, initial encounter for closed fracture Code(s): S72.001A - Fracture of unspecified part of neck of right femur, initial encounter for closed fracture Status: Deleted Assessment and Plan: Status post ORIF of the right femur postop day 1 -patient is a little sleepy today but arouses easily -she is usually on oxycodone 60 mg sustained release. I want to avoid withdrawal but help with the pain. Plan is to give her 20 mg scheduled and have 5 mg available p.r.n.. If she has significant pain with this and her mentation is good, we can increase this. She also has scheduled Tylenol. -Transferred from [facility] for right hip fracture after a fall getting into bed at senior living. -continue ortho recommendations with Dr. Aguilar in regards to Postoperative wound care, pain control, DVT prophylaxis -on aspirin 325 mg every 12 hours for DVT prophylaxis (2) COVID-19: Code(s): U07.1 - COVID-19 Status: Acute Assessment and Plan: -Patient tested positive for COVID-19 on 06/04/2020 at the senior living. (Hard copy of test result on chart) -she is on oxygen currently but likely due to postop. She is 99% so I will wean this. I do not suspect worsening COVID-19 -Continue droplet isolation and monitor respiratory status. Chest x-ray demonstrates some mild atelectasis right lung base. Encourage incentive spirometer. Supportive care. (3) Chronic pain: Qualifiers: Chronic pain type: other chronic pain Qualified Code(s): G89.29 - Other chronic pain Code(s): G89.29 - Other chronic pain Status: Chronic Assessment and Plan: -see above -continue 20 mg of oxycodone since stain released with p.r.n. oxycodone as well. Will likely need to increase this -monitor mental status. No neurological deficits on exam (4) GERD (gastroesophageal reflux disease): Qualifiers: Esophagitis presence: esophagitis presence not specified Qualified Code(s): K21.9 - Gastro-esophageal reflux disease without esophagitis Code(s): K21.9 - Gastro-esophageal reflux disease without esophagitis Status: Chronic Assessment and Plan: -No acute issues today. Continue PPI. (5) Depression: Qualifiers: Depression Type: unspecified Qualified Code(s): F32.9 - Major depressive disorder, single episode, unspecified Code(s): F32.9 - Major depressive disorder, single episode, unspecified Status: Chronic Assessment and Plan: Continue sertraline -continue Ativan but changes to p.r.n. Additional Plan Lives at [facility]. Time Spent With Patient Time with patient: 25 - 35 minutes Subjective Date/time seen: 06/07/20 16:28 Interval history: Pt is a 74-year-old female with chronic pain who is here for hip fracture. Patient was seen today and was sleeping on exam. She arouses easily and was able to answer all of my questions appropriately. When asked if she had pain she kept repeatedly telling me I am not sure yet I just woke up . She denied chest pain, shortness of breath, fevers, chills, abdominal pain, nausea, vomiting, diarrhea or constipation. I had the nurse verify her medications with the senior living who states that she takes 60 mg of the oxycodone sustained release which does not make her somnolent. Review of Systems Review of Systems: All systems reviewed & are unremarkable except as noted in HPI and below Exam Narrative: Exam Narrative: General: Well developed well nourished patient in NAD HEENT: normocephalic Neck: supple Neuro: Alert and oriented to herself, situation, location, president but for got the year. Cranial nerves 2-12 intact. Equal strength the upper lower extremiti
[2020-06-07] MEDS: MIRTAZAPINE 30 MG TABLET PO (21:17)
[2020-06-07] MEDS: oxyCODONE HCL (*CRX) 20 MG TAB SR 12HR PO (21:19)
[2020-06-08] VITALS (9 sets, daily range): BP systolic 132–153; BP diastolic 51–73; PULSE 89–141; RESP 16–20; TEMP 36.1–36.7; O2SAT 91–99
[2020-06-08 06:42] LABS: Alanine Aminotransferase 15 U/L (4-35); Albumin Level 3.2 g/dL (3.5-5.1); Alkaline Phosphatase 55 U/L (38-126); Anion Gap 7 mmol/L (8-16); Aspartate Amino Transferase 65 U/L (14-36); Bilirubin,Total 0.5 mg/dL (0.2-1.3); Blood Urea Nitrogen 22 mg/dL (7-17); Calcium 8.6 mg/dL (8.4-10.2); Carbon Dioxide 29 mmol/L (22-30); Chloride 106 mmol/L (98-107); Estimated CRCL calculation 67 ml/min; Estimated Glomerular Filt Rate > 60; Glucose 142 mg/dL (65-105); Potassium 3.7 mmol/L (3.4-5.0); Sodium 142 mmol/L (137-145)
[2020-06-08] MEDS: ACETAMINOPHEN 500 MG TABLET 1000 MG PO (06:48)
[2020-06-08 06:49] LABS: Hematocrit 28.8 % (37.0-47.0); Hemoglobin 8.9 g/dL (12.0-15.0); Mean Corpuscular HGB Conc 30.9 g/dl (32-36); Mean Corpuscular Hemoglobin 27.7 pg (26-34); Mean Corpuscular Volume 89.7 fl (80-100); Mean Platelet Volume 11.2 fl (7.4-10.4); Platelet Count Result 216 k/mm3 (150-375); Red Blood Count 3.21 M/mm3 (4.2-5.4); Red Cell Distribution Width 15.2 % (11.5-14.5); White Blood Count 9.5 K/mm3 (4.5-10.0)
--- NOTE | 2020-06-08 09:07 | PCPTNOTE ---
Attempted to see patient for PT at this time, however patient sleeping soundly. Patient opens eyes briefly before falling back to sleep. PT will continue to follow per plan of care.
--- NOTE | 2020-06-08 10:26 | ECG_ITS ---
Measurements Intervals [place] Rate: 107 P: 34 [place]: 130 QRS: 35 QRSD: 83 T: 27 QT: 351 QTc: 470 Interpretive Statements SINUS TACHYCARDIA BORDERLINE ST-T WAVE ABNORMALITY- ANTEROLAT/INF LEADS BASELINE ARTIFACT- I, II, III, AVR, AVL, AVF, V1-V6 ABNORMAL ECG Electronically Signed On 06-08-2020 10:49:35 CROSS [employer]IE [employer]ER by Joshua Doll D.O.
[2020-06-08 10:28] LABS: Alveolar/Arterial O2 Gradient 142.8 mmHg; Base Excess ABG -0.1 mEq/l (+/-2.0); Carboxyhemoglobin 0.3 % THb (0-2.0); Fractional Inspired Oxygen 36 %; HCO3 ABG 25.7 mEq/l (22.0-26.0); Methemoglobin ABG 0.1 %THb (0-1.5); Oxygen Content ABG 11.6 %vol (16.0-22.0); Oxyhemoglobin 90.6 % THb (90.0-100.0); PCO2 ABG 47.6 mmHg (35.0-45.0); PO2 ABG 58.7 mmHg (80.0-100.0); PO2 FiO2 Ratio Arterial Blood 1.63 %; Total Hemoglobin 9.1 g/dL (12.0-18.0)
[2020-06-08 10:29] LABS: Device NASAL CANNULA; Modified Allen's Test Pass; Site Drawn LEFT RADIAL
[2020-06-08 10:40] LABS: Basophils Percent Auto 0.2 % (0.2-1.2); Hematocrit 27.7 % (37.0-47.0); Hemoglobin 8.3 g/dL (12.0-15.0); Immature Granulocyte Absolute 0.03 K/mm3 (0.00-0.031); Immature Granulocyte Percent A 0.5 % (0-0.5); Lymphocytes Absolute Auto 0.48 K/mm3 (0.9-3.2); Lymphocytes Percent Auto 8.7 % (18.3-44.2); Mean Corpuscular Hemoglobin 27.8 pg (26-34); Mean Corpuscular Volume 92.6 fl (80-100); Mean Platelet Volume 10.8 fl (7.4-10.4); Monocytes Absolute Auto 0.2 K/mm3 (0.1-0.6); Monocytes Percent Auto 4.4 % (2.6-8.5); Neutrophils Absolute Auto 4.7 K/mm3 (1.3-6.7); Neutrophils Percent Auto 86.2 % (45.5-73.1); Platelet Count Result 176 k/mm3 (150-375); Red Blood Count 2.99 M/mm3 (4.2-5.4); Red Cell Distribution Width 15.3 % (11.5-14.5); White Blood Count 5.5 K/mm3 (4.5-10.0)
[2020-06-08 10:53] LABS: Alanine Aminotransferase 13 U/L (4-35); Albumin Level 3.1 g/dL (3.5-5.1); Alkaline Phosphatase 50 U/L (38-126); Anion Gap 4 mmol/L (8-16); Aspartate Amino Transferase 61 U/L (14-36); Bilirubin,Total 0.5 mg/dL (0.2-1.3); Blood Urea Nitrogen 25 mg/dL (7-17); Calcium 8.7 mg/dL (8.4-10.2); Carbon Dioxide 33 mmol/L (22-30); Chloride 105 mmol/L (98-107); Estimated CRCL calculation 58 ml/min; Estimated Glomerular Filt Rate > 60; Glucose 135 mg/dL (65-105); Potassium 4.1 mmol/L (3.4-5.0); Sodium 142 mmol/L (137-145)
[2020-06-08 10:53] LABS: Ammonia < 9 umol/L (9-30); Lactic Acid Reflex 1.7 mmol/L (0.7-2.1)
--- NOTE | 2020-06-08 10:59 | PM.IMPN ---
Progress Note: A&P Assessment and Plan (1) Unresponsive episode: Code(s): R41.89 - Other symptoms and signs involving cognitive functions and awareness Status: Acute Assessment and Plan: -nurse found the patient not responding well this morning, last known well unknown -patient is on 60 mg of sustained release oxycodone twice a day at the [facility] and this was verified yesterday. She was started back on 20 mg and her last dose was last night at 9:00 p.m. -she was given 0.1 mg of Narcan at bedside which initially did not improve her mental status and we lost IV access -once IV access was obtained, a full 0.4 mg was given in which she did start responding to pain and her pupil dilated but she still did not follow commands -glucose on bedside greater than 100 -ABG obtained which shows slightly increased CO2 within normal bicarb and normal pH. -differentials include: Stroke, opioid overdose, sepsis (less likely), pneumonia/aspiration, seizure-like activity (less likely), worsening COVID-19 state, or MD (less likely) -await blood work and CT of the brain (2) Closed right hip fracture: Qualifiers: Encounter type: initial encounter Qualified Code(s): S72.001A - Fracture of unspecified part of neck of right femur, initial encounter for closed fracture Code(s): S72.001A - Fracture of unspecified part of neck of right femur, initial encounter for closed fracture Status: Deleted Assessment and Plan: Status post ORIF of the right femur postop day 2 -she is usually on oxycodone 60 mg sustained release. Will hold narcotic medications at this time -Transferred from [facility] for right hip fracture after a fall getting into bed at [facility]. -continue ortho recommendations with Dr. Aguilar in regards to Postoperative wound care, pain control, DVT prophylaxis -on aspirin 325 mg every 12 hours for DVT prophylaxis (3) COVID-19: Code(s): U07.1 - COVID-19 Status: Acute Assessment and Plan: -Patient tested positive for COVID-19 on 06/04/2020 at the [facility]. (Hard copy of test result on chart) -she is on oxygen currently again after being weaned off overnight -Continue droplet isolation and monitor respiratory status. Chest x-ray demonstrates some mild atelectasis right lung base. Encourage incentive spirometer. Supportive care. (4) Chronic pain: Qualifiers: Chronic pain type: other chronic pain Qualified Code(s): G89.29 - Other chronic pain Code(s): G89.29 - Other chronic pain Status: Chronic Assessment and Plan: -see above (5) GERD (gastroesophageal reflux disease): Qualifiers: Esophagitis presence: esophagitis presence not specified Qualified Code(s): K21.9 - Gastro-esophageal reflux disease without esophagitis Code(s): K21.9 - Gastro-esophageal reflux disease without esophagitis Status: Chronic Assessment and Plan: -No acute issues today. Continue PPI. (6) Depression: Qualifiers: Depression Type: unspecified Qualified Code(s): F32.9 - Major depressive disorder, single episode, unspecified Code(s): F32.9 - Major depressive disorder, single episode, unspecified Status: Chronic Assessment and Plan: Continue sertraline -continue Ativan but changes to p.r.n. Additional Plan Spoke to son and verified DNR status as above. Will keep him informed. Subjective Date/time seen: 06/08/20 10:59 Interval history: Pt is a 74-year-old female with chronic pain who is here for hip fracture. Nurse approached me on the floor because the patient was lethargic and not responding. Patient started requiring oxygen overnight but no other events noted. Spoke to the son and reviewed her DNR status and he agrees to Uphold the DNR status Exam Narrative: Exam Narrative: General: Elderly patient resting in bed in no respiratory distress resp
[2020-06-08 11:05] LABS: Troponin I 0.016 ng/mL (0.000-0.034)
[2020-06-08 12:23] LABS: Glucose Point of Care 154 (65-105)
--- NOTE | 2020-06-08 12:52 | PM.PNORT ---
Progress Note: A&P Assessment and Plan (1) History of fracture of right hip: Code(s): Z87.81 - Personal history of (healed) traumatic fracture Status: Acute Assessment and Plan: 74-year-old female postop day two ORIF right peritrochanteric fracture. She is responsive now. Will try some therapy once current evaluation is completed. Following Subjective Subjective Date/Time Seen: 06/08/20 12:52 Post Op day: 2 Interval history: 74-year-old female postop day two ORIF right peritrochanteric femur fracture. Hospitalist note reviewed. Patient is more alert and interactive now. Exam Const: Other: Is aware that she is at the hospital is asking for her son. Neuro: Other: Appears to move all four extremities. Right hip wounds her dry. Minimal swelling in the thigh. Abdomen nondistended Objective Data Vital Signs Vital Signs: Vital Signs - 24 hr 06/07/20 16:00 06/07/20 20:00 06/07/20 21:00 Temperature 97.5 F L 98.9 F Pulse Rate 99 96 Respiratory Rate 17 16 16 Blood Pressure 111/59 L 115/52 L Pulse Oximetry 96 96 95 06/07/20 23:11 06/08/20 00:00 06/08/20 04:00 Temperature 97.2 F L 97.6 F Pulse Rate 94 104 H 103 H Respiratory Rate 16 16 Blood Pressure 132/51 L 142/51 H Pulse Oximetry 96 99 92 06/08/20 06:00 06/08/20 08:00 06/08/20 11:05 Temperature 97.0 F L Pulse Rate 89 92 Respiratory Rate 16 18 18 Blood Pressure 138/57 L 132/58 L Pulse Oximetry 92 93 93 Intake/Output Intake/Output: Intake & Output 06/05/20 06/06/20 06/07/20 06/08/20 23:59 23:59 23:59 23:59 Intake Total 1290 / 1290 500 / 500 3060 / 3060 200 / 200 Output Total 700 / 700 1000 / 1000 250 / 250 Balance 590 / 590 -500 / -500 2810 / 2810 200 / 200 Meds/Results Medications: Active Medications Generic Name Dose Route Start Last Admin Trade Name Freq PRN Reason Stop Dose Admin Acetaminophen 1,000 mg 06/06/20 22:00 12/10/20 06:48 Acetaminophen 500 Mg Tablet PO 12/15/20 22:01 1,000 mg Q8H IVONNE Administration Alprazolam 0.5 mg 06/07/20 16:37 06/07/20 21:18 Alprazolam (*Crx) 0.5 Mg Tablet PO 0.5 mg TID PRN Administration Anxiety Aspirin 325 mg 06/06/20 21:00 06/07/20 21:17 Aspirin 325 Mg Enteric Tablet PO 325 mg Q12HR IVONNE Administration Docusate Sodium 100 mg 06/07/20 09:00 06/07/20 17:56 Docusate Sodium 100 Mg Capsule PO 100 mg BID IVONNE Administration Duloxetine HCl 60 mg 06/05/20 11:15 06/07/20 09:28 Duloxetine Hcl 60 Mg Capsule.Dr PO 60 mg DAILY IVONNE Administration Magnesium Hydroxide 30 ml 06/06/20 19:01 Magnesium Hydroxide Susp 30 Ml Udc PO BID PRN Constipation Mirtazapine 30 mg 06/05/20 21:00 06/07/20 21:17 Mirtazapine 30 Mg Tablet PO 30 mg HS IVONNE Administration Naloxone HCl 0.1 mg 06/06/20 19:01 Naloxone Hcl 0.4 Mg/Ml Vial IV PUSH Q2M PRN Opiate Reversal Ondansetron HCl 4 mg 06/06/20 08:42 Ondansetron Inj 4 Mg/2 Ml Vial IV PUSH ONCE PRN Nausea Ondansetron HCl 4 mg 06/06/20 19:01 Ondansetron Inj 4 Mg/2 Ml Vial IV PUSH Q4H PRN Nausea And Vomiting Oxycodone HCl 60 mg 06/05/20 21:00 06/07/20 09:36 Oxycodone Hcl (*Crx) 20 Mg Tab Sr 12hr PO 60 mg Q12HR IVONNE Administration Oxycodone HCl 5 mg 06/07/20 15:57 Oxycodone Hcl (*Crx) 5 Mg Tab Ir PO Q4H PRN breakthrough pain Oxycodone HCl 20 mg 06/07/20 21:00 06/07/20 21:19 Oxycodone Hcl (*Crx) 20 Mg Tab Sr 12hr PO 20 mg Q12HR IVONNE Administration Pantoprazole Sodium 40 mg 06/05/20 11:15 06/07/20 09:29 Pantoprazole Sodium Iv 40 Mg Vial IV PUSH 40 mg QAM IVONNE Administration Sertraline HCl 25 mg 06/05/20 09:00 06/07/20 09:28 Sertraline Hcl 25 Mg Tablet PO 25 mg QAM IVONNE Administration Sertraline HCl 50 mg 06/05/20 09:00 06/07/20 09:28 Sertraline Hcl 50 Mg Tablet PO 50 mg QAM IVONNE Administration Vitamin D 2,000 units 06/05/20 09:00 06/07/20 09:28 C
--- NOTE | 2020-06-08 13:03 | PC.NURSE ---
Pt was sleeping this morning/snoring. She was arousable to light touch. Medications were held, due to her being sleepy, and planned to give them later in the morning. When the tech went to take her breakfast to her, she noticed the pt was leaning to the right and very lethargic. She called me, I went to check the pt, and notified ALINE Carson who was on our unit at the time. Pt was not responsive to sternal rub, or any other stimulation. She had yellow liquid drooling from her mouth on right side. Rapid response was called. Pt was given narcan, and became more responsive, but still not to the level of responsiveness she was the previous day. Pt will yell out randomly, and is more alert at this time. Have spoken with her son, who stated that, she gets like that when her pain medication is decreased. She probably needs more pain medication . Spent time educating her son, on why we arent going to give more pain medication when she is unresponsive and had to have a rapid response called. Will continue to monitor the pt.
[2020-06-08 13:22] LABS: Troponin I 0.019 ng/mL (0.000-0.034)
--- NOTE | 2020-06-08 14:51 | PCPTNOTE ---
Attempted PT this afternoon. Patient awake this afternoon and confused. Patient yells No! and would not participate in exercises or bed mobility.
[2020-06-08 16:17] LABS: Troponin I 0.017 ng/mL (0.000-0.034)
[2020-06-08] MEDS: MIRTAZAPINE 30 MG TABLET PO (21:03)
[2020-06-08] MEDS: ASPIRIN 325 MG ENTERIC TABLET PO (21:03)
[2020-06-09] VITALS: BP 135/58; PULSE 100; PULSE 99; RESP 18; TEMP 36.6; O2SAT 96
[2020-06-09 04:00] VITALS: BP 158/71; PULSE 101; PULSE 102; RESP 16; TEMP 36.4; O2SAT 94
[2020-06-09 06:53] LABS: Alanine Aminotransferase 11 U/L (4-35); Albumin Level 2.8 g/dL (3.5-5.1); Alkaline Phosphatase 47 U/L (38-126); Anion Gap 9 mmol/L (8-16); Aspartate Amino Transferase 47 U/L (14-36); Bilirubin,Total 0.8 mg/dL (0.2-1.3); Blood Urea Nitrogen 20 mg/dL (7-17); Calcium 8.7 mg/dL (8.4-10.2); Carbon Dioxide 27 mmol/L (22-30); Chloride 108 mmol/L (98-107); Estimated CRCL calculation 79 ml/min; Estimated Glomerular Filt Rate > 60; Glucose 89 mg/dL (65-105); Sodium 144 mmol/L (137-145)
[2020-06-09 07:40] LABS: Basophils Percent Auto 0.6 % (0.2-1.2); Hematocrit 25.2 % (37.0-47.0); Hemoglobin 8.1 g/dL (12.0-15.0); Immature Granulocyte Absolute 0.24 K/mm3 (0.00-0.031); Lymphocytes Absolute Auto 0.43 K/mm3 (0.9-3.2); Lymphocytes Percent Auto 25.1 % (18.3-44.2); Mean Corpuscular HGB Conc 32.1 g/dl (32-36); Mean Corpuscular Hemoglobin 27.9 pg (26-34); Mean Corpuscular Volume 86.9 fl (80-100); Mean Platelet Volume 10.3 fl (7.4-10.4); Monocytes Absolute Auto 0.1 K/mm3 (0.1-0.6); Monocytes Percent Auto 5.8 % (2.6-8.5); Neutrophils Absolute Auto 0.9 K/mm3 (1.3-6.7); Neutrophils Percent Auto 54.5 % (45.5-73.1); Nucleated Red Blood Cells Perc 1.2 % (0.0-0.2); Platelet Count Result 232 k/mm3 (150-375); Red Cell Distribution Width 14.9 % (11.5-14.5)
[2020-06-09 08:00] VITALS: BP 147/71; PULSE 100; PULSE 102; RESP 16; TEMP 36.8; O2SAT 94
[2020-06-09] MEDS: DULoxetine HCL 60 MG CAPSULE.DR PO (08:16)
[2020-06-09] MEDS: PANTOPRAZOLE SODIUM IV 40 MG VIAL IV PUSH (08:17)
[2020-06-09 08:19] LABS: Free T4 Free Thyroxine Reflex 1.09 ng/dL (0.78-2.19)
[2020-06-09 08:20] LABS: White Blood Count 1.7 K/mm3 (4.5-10.0)
[2020-06-09 10:28] LABS: Total Triiodothyronine (T3) 0.34 NG/ML (0.97-1.69)
[2020-06-09 12:00] VITALS: BP 160/69; PULSE 102; PULSE 104; RESP 18; TEMP 36.9
--- NOTE | 2020-06-09 12:07 | PCOTNOTE ---
Attempted to see pt this AM for occupational therapy tx. Pt was nonverbal, would only moan, and was unable to verbalize response to therapist questions. Therapist attempted to have pt wash their face supine in bed, however, pt would push therapist's hand away or turn their face to the opposite side. Therapist attempted to perform PROM, however, was resistance and pushed therapist's hand away. Therapist ended session due to pt's inability to participate in therapy. RN was informed of pt's resistive behavior with therapy at this time. Will continue per POC frequency and duration tomorrow.
[2020-06-09 14:04] LABS: Hemoglobin 7.8 g/dL (12.0-15.0); Immature Granulocyte Absolute 0.07 K/mm3 (0.00-0.031); Immature Granulocyte Percent A 2.4 % (0-0.5); Lymphocytes Absolute Auto 0.56 K/mm3 (0.9-3.2); Lymphocytes Percent Auto 19.2 % (18.3-44.2); Mean Corpuscular HGB Conc 32.5 g/dl (32-36); Mean Corpuscular Hemoglobin 28.2 pg (26-34); Mean Corpuscular Volume 86.6 fl (80-100); Mean Platelet Volume 10.2 fl (7.4-10.4); Monocytes Absolute Auto 0.1 K/mm3 (0.1-0.6); Monocytes Percent Auto 2.4 % (2.6-8.5); Neutrophils Absolute Auto 2.2 K/mm3 (1.3-6.7); Nucleated Red Blood Cells Perc 0.7 % (0.0-0.2); Platelet Count Result 260 k/mm3 (150-375); Red Blood Count 2.77 M/mm3 (4.2-5.4); Red Cell Distribution Width 15.1 % (11.5-14.5); White Blood Count 2.9 K/mm3 (4.5-10.0)
--- NOTE | 2020-06-09 15:10 | PM.PNORT ---
Progress Note: A&P Assessment and Plan (1) History of fracture of right hip: Code(s): Z87.81 - Personal history of (healed) traumatic fracture Status: Acute Assessment and Plan: 74-year-old female postop day three ORIF right hip fracture. I discussed with Elodia the hospitalist about reintroducing her pain medications. According to the patient's son, if she does not get her pain medications she exam is somewhat uncooperative. Medications will be slowly reintroduced and hopefully we can start making a little bit of progress with her. Following. Subjective Subjective Date/Time Seen: 06/09/20 15:10 Post Op day: 3 Principal diagnosis: Status post ORIF right peritrochanteric hip fracture Interval history: 34-year-old female postop day three right peritrochanteric hip fracture stabilization. Has not been terribly cooperative with nursing or therapy at this point. Exam Const: General: No cooperative (Appears to be hearing but does not want to cooperate) Psych: Other: Upper lower extremity neuro exam unremarkable today. Right hip wounds are healing up very nicely. Calves are negative. Objective Data Vital Signs Vital Signs: Vital Signs - 24 hr 06/08/20 16:00 06/08/20 19:30 06/08/20 20:00 Temperature 98.0 F 98.1 F Pulse Rate 109 H 138 H Respiratory Rate 20 18 16 Blood Pressure 149/73 H 132/72 Pulse Oximetry 94 94 97 06/09/20 00:00 06/09/20 04:00 06/09/20 08:00 Temperature 97.9 F 97.6 F 98.2 F Pulse Rate 99 101 H 102 H Respiratory Rate 18 16 16 Blood Pressure 135/58 L 158/71 H 147/71 H Pulse Oximetry 96 94 94 06/09/20 12:00 Temperature 98.4 F Pulse Rate 102 H Respiratory Rate 18 Blood Pressure 160/69 H Pulse Oximetry Intake/Output Intake/Output: Intake & Output 06/06/20 06/07/20 06/08/20 06/09/20 23:59 23:59 23:59 23:59 Intake Total 500 / 500 3060 / 3060 400 / 400 350 / 350 Output Total 1000 / 1000 250 / 250 Balance -500 / -500 2810 / 2810 400 / 400 350 / 350 Meds/Results Medications: Active Medications Generic Name Dose Route Start Last Admin Trade Name Freq PRN Reason Stop Dose Admin Alprazolam 0.5 mg 06/07/20 16:37 06/07/20 21:18 Alprazolam (*Crx) 0.5 Mg Tablet PO 0.5 mg TID PRN Administration Anxiety Aspirin 325 mg 06/06/20 21:00 06/09/20 08:00 Aspirin 325 Mg Enteric Tablet PO Not Given Q12HR IVONNE Docusate Sodium 100 mg 06/07/20 09:00 06/09/20 08:00 Docusate Sodium 100 Mg Capsule PO Not Given BID IVONNE Duloxetine HCl 60 mg 06/05/20 11:15 06/09/20 08:16 Duloxetine Hcl 60 Mg Capsule.Dr PO 60 mg DAILY IVONNE Administration Acetaminophen 1,000 mg in 100 mls @ 400 mls/hr 06/08/20 18:00 06/09/20 12:16 Ofirmev 1,000 Mg Ivpb IVPB 06/09/20 18:01 Infused Q6HR IVONNE Infusion Potassium Chloride 500 mls @ 125 mls/hr 06/09/20 11:28 06/09/20 12:51 Kcl 40 Meq/D5w 500 Ml Peripheral IVPB 06/09/20 15:27 125 mls/hr ONCE ONE Administration Magnesium Hydroxide 30 ml 06/06/20 19:01 Magnesium Hydroxide Susp 30 Ml Udc PO BID PRN Constipation Mirtazapine 30 mg 06/05/20 21:00 06/08/20 21:03 Mirtazapine 30 Mg Tablet PO 30 mg HS IVONNE Administration Naloxone HCl 0.1 mg 06/06/20 19:01 Naloxone Hcl 0.4 Mg/Ml Vial IV PUSH Q2M PRN Opiate Reversal Ondansetron HCl 4 mg 06/06/20 08:42 Ondansetron Inj 4 Mg/2 Ml Vial IV PUSH ONCE PRN Nausea Ondansetron HCl 4 mg 06/06/20 19:01 Ondansetron Inj 4 Mg/2 Ml Vial IV PUSH Q4H PRN Nausea And Vomiting Oxycodone HCl 60 mg 06/05/20 21:00 06/07/20 09:36 Oxycodone Hcl (*Crx) 20 Mg Tab Sr 12hr PO 60 mg Q12HR IVONNE Administration Oxycodone HCl 5 mg 06/07/20 15:57 Oxycodone Hcl (*Crx) 5 Mg Tab Ir PO Q4H PRN breakthrough pain Oxycodone HCl 20 mg 06/07/20 21:00 06/09/20 08:00 Oxycodone Hcl (*Crx) 20 Mg Tab Sr 12hr PO Not Given Q12HR IVONNE Pantoprazole Sodium 40 mg 06/05/20 11:15
--- NOTE | 2020-06-09 15:33 | PM.IMPN ---
Progress Note: A&P Assessment and Plan (1) Bacteremia: Code(s): R78.81 - Bacteremia Status: Acute Assessment and Plan: 1/2 blood cultures are growing gram-negative bacilli -ceftriaxone 2 g started -unclear of source, could be urinary. Will obtain UA -I do not believe this is a result of surgery as I believe it is too soon -patient is leukopenic -will await cultures and adjust medications as necessary (2) Unresponsive episode: Code(s): R41.89 - Other symptoms and signs involving cognitive functions and awareness Status: Acute Assessment and Plan: -likely due to excessive opioid use as she is better with the Narcan -because of her pain, will restart shorter acting medications such as morphine. Son states she does better with morphine -patient also has 1 positive blood culture which can complicate the picture, antibiotics started -CT of the brain negative for acute abnormality -patient is not eating or drinking and refusing medications today. If this continues, may need TPN. Hopefully this improves with antibiotics (3) Closed right hip fracture: Qualifiers: Encounter type: initial encounter Qualified Code(s): S72.001A - Fracture of unspecified part of neck of right femur, initial encounter for closed fracture Code(s): S72.001A - Fracture of unspecified part of neck of right femur, initial encounter for closed fracture Status: Deleted Assessment and Plan: Status post ORIF of the right femur postop day 3 -she is usually on oxycodone 60 mg sustained release. -Transferred from [facility] for right hip fracture after a fall getting into bed at [facility]. -continue ortho recommendations with Dr. Aguilar in regards to Postoperative wound care, pain control, DVT prophylaxis -on aspirin 325 mg every 12 hours for DVT prophylaxis (4) COVID-19: Code(s): U07.1 - COVID-19 Status: Acute Assessment and Plan: -Patient tested positive for COVID-19 on 06/04/2020 at the [facility]. (Hard copy of test result on chart) -no complaints of shortness of breath, no respiratory distress -Continue droplet isolation and monitor respiratory status. Chest x-ray demonstrates some mild atelectasis right lung base. Encourage incentive spirometer. Supportive care. (5) Chronic pain: Qualifiers: Chronic pain type: other chronic pain Qualified Code(s): G89.29 - Other chronic pain Code(s): G89.29 - Other chronic pain Status: Chronic Assessment and Plan: -see above (6) GERD (gastroesophageal reflux disease): Qualifiers: Esophagitis presence: esophagitis presence not specified Qualified Code(s): K21.9 - Gastro-esophageal reflux disease without esophagitis Code(s): K21.9 - Gastro-esophageal reflux disease without esophagitis Status: Chronic Assessment and Plan: -No acute issues today. Continue PPI. (7) Depression: Qualifiers: Depression Type: unspecified Qualified Code(s): F32.9 - Major depressive disorder, single episode, unspecified Code(s): F32.9 - Major depressive disorder, single episode, unspecified Status: Chronic Assessment and Plan: Continue sertraline -continue Ativan but changes to p.r.n. Subjective Date/time seen: 06/09/20 15:33 Interval history: Pt is a 74-year-old female with chronic pain who is here for hip fracture. Patient was seen today and was alert but would not answer any questions or follow any commands. She frequently pushed me away during my exam. She seems to be moving all limbs spontaneously. I tried to call her son but I had to leave a message Exam Narrative: Exam Narrative: General: Elderly patient resting in bed in no respiratory distress HEENT: normocephalic, pupils equal and reactive. Neck: supple Neuro: Would not follow commands or participate in a neuro exam. Pupils equal an
--- NOTE | 2020-06-09 15:33 | PC.NURSE ---
This morning at 0905 lab notified this nurse of a critical WBC value. It was also documented by Marti Batista that she notified this nurse of a positive blood culture as well but only the WBC value was relayed to this nurse. This nurse was not told about the positive blood culture this morning. Manager Corporate Carroll Hester, notified of this situation.
[2020-06-09 16:00] VITALS: BP 150/75; PULSE 103; PULSE 105; RESP 18; TEMP 36.3; O2SAT 94
[2020-06-09 18:02] LABS: Add Urine Microscopic? YES; Appearance Urine Clear (Clear); Bacteria Urine 4+ /hpf; Bilirubin Urine Negative (Negative); Blood Urine Negative (Negative); Color Urine Yellow (Yellow); Glucose Urine UA Negative (Negative); Ketones Urine 1+ mg/dL (Negative); Leukocyte Esterase Ur 1+ LEU/UL (Negative); Mucus Urine Rare /lpf; Nitrate Urine Positive (Negative); Protein Urine 2+ mg/dL (Negative); RBC Urine 0-2 /hpf (0-2); Specific Grav Ur 1.019 (1.001-1.035); Squamous Epithelial Cell Urine Many /hpf (Few); Urobilinogen Urine Negative mg/dL (<2.0); WBC Urine 0-3 /hpf
[2020-06-09 20:00] VITALS: BP 133/78; PULSE 106; PULSE 112; RESP 18; TEMP 36.9; O2SAT 90
[2020-06-09] MEDS: MORPHINE SULFATE (*CRX) 2 MG/ML INJ IV PUSH (21:17)
[2020-06-10] VITALS (7 sets, daily range): BP systolic 95–151; BP diastolic 29–76; PULSE 76–140; RESP 12–20; TEMP 36.3–36.9; O2SAT 85–93
[2020-06-10] MEDS: MORPHINE SULFATE (*CRX) 2 MG/ML INJ IV PUSH ×4 (00:05→13:18)
[2020-06-10 07:49] LABS: Basophils Absolute Auto 0.1 K/mm3 (0.0-0.1); Basophils Percent Auto 1.9 % (0.2-1.2); Hematocrit 25.2 % (37.0-47.0); Hemoglobin 8.3 g/dL (12.0-15.0); Immature Granulocyte Absolute 0.35 K/mm3 (0.00-0.031); Immature Granulocyte Percent A 7.2 % (0-0.5); Lymphocytes Percent Auto 16.5 % (18.3-44.2); Mean Corpuscular HGB Conc 32.9 g/dl (32-36); Mean Corpuscular Hemoglobin 27.1 pg (26-34); Mean Corpuscular Volume 82.4 fl (80-100); Mean Platelet Volume 10.4 fl (7.4-10.4); Monocytes Absolute Auto 0.3 K/mm3 (0.1-0.6); Monocytes Percent Auto 5.4 % (2.6-8.5); Neutrophils Absolute Auto 3.3 K/mm3 (1.3-6.7); Nucleated Red Blood Cells Absolute Auto 0.1 K/mm3 (0.0-0.012); Platelet Count Result 325 k/mm3 (150-375); Red Blood Count 3.06 M/mm3 (4.2-5.4); White Blood Count 4.8 K/mm3 (4.5-10.0)
[2020-06-10 08:06] LABS: Anion Gap 9 mmol/L (8-16); Blood Urea Nitrogen 20 mg/dL (7-17); Calcium 8.8 mg/dL (8.4-10.2); Carbon Dioxide 29 mmol/L (22-30); Chloride 108 mmol/L (98-107); Estimated CRCL calculation 79 ml/min; Estimated Glomerular Filt Rate > 60; Glucose 117 mg/dL (65-105); Magnesium 2.3 mg/dL (1.6-2.3); Potassium 3.1 mmol/L (3.4-5.0); Sodium 146 mmol/L (137-145)
[2020-06-10 08:49] LABS: Platelet Estimate Adequate (Adequate)
[2020-06-10 08:50] LABS: Hypochromasia 2+ (NORMAL); Target Cells 1+ (NORMAL)
[2020-06-10 08:57] LABS: Alanine Aminotransferase 22 U/L (4-35); Albumin Level 2.9 g/dL (3.5-5.1); Alkaline Phosphatase 50 U/L (38-126); Aspartate Amino Transferase 86 U/L (14-36); Bilirubin,Total 1.7 mg/dL (0.2-1.3); CRP 35.2 mg/dL (<1.0)
[2020-06-10] MEDS: PANTOPRAZOLE SODIUM IV 40 MG VIAL IV PUSH (10:10)
[2020-06-10] MEDS: LACTATED RINGERS 1,000 ML 75 ML IV CONT (10:13)
--- NOTE | 2020-06-10 11:50 | PM.IMPN ---
Progress Note: A&P Assessment and Plan (1) Bacteremia: Code(s): R78.81 - Bacteremia Status: Acute Assessment and Plan: 1/2 blood cultures are growing gram-negative bacilli -imipenem was started 06/09/20 after speaking with the son who states that she had a UTI that was resistant a couple weeks ago -[facility] with this information -new UA shows squamous cells, nitrates, 1+ leuk esterase but no white blood cells. -unclear of source, likely partially treated urinary tract infection -I do not suspect this is a complication of surgery as I believe it is too soon -white blood cell count better today -will await cultures and adjust medications as necessary (2) Acute metabolic encephalopathy: Code(s): G93.41 - Metabolic encephalopathy Status: Acute Assessment and Plan: Appears to be multifactorial due to recent surgery, bacteremia, and narcotic use -she is not working with therapy and refusing to eat (3) Failure to thrive: Status: Acute Assessment and Plan: Patient continues to not participate in therapy or eat -if she continues with this she will not heal well and will have weight loss -her electrolytes are abnormal as she is hypernatremic and hypokalemic likely due to dehydration -fluids were initially started but I am going to switch to Clinimix and consult the dietitian -I had a talk with the patient today about this and she understands that she does not eat she will not pull through this illness (4) Unresponsive episode: Code(s): R41.89 - Other symptoms and signs involving cognitive functions and awareness Status: Acute Assessment and Plan: Occurred the morning of 06/08/20 -likely due to excessive opioid use as she is better with the Narcan but could also be combination with bacteremia -because of her pain, will continue shorter acting medications such as morphine. Son states she does better with morphine -patient also has 1 positive blood culture which can complicate the picture, antibiotics started as stated above -CT of the brain negative for acute abnormality (5) Closed right hip fracture: Qualifiers: Encounter type: initial encounter Qualified Code(s): S72.001A - Fracture of unspecified part of neck of right femur, initial encounter for closed fracture Code(s): S72.001A - Fracture of unspecified part of neck of right femur, initial encounter for closed fracture Status: Deleted Assessment and Plan: Status post ORIF of the right femur postop day 4 -she is usually on oxycodone 60 mg sustained release but for now we are using morphine -Transferred from [facility] for [facility] -continue ortho recommendations with Dr. Aguilar in regards to Postoperative wound care, pain control, DVT prophylaxis -on aspirin 325 mg every 12 hours for DVT prophylaxis but she is refusing. Will switch to Lovenox (6) COVID-19: Code(s): U07.1 - COVID-19 Status: Acute Assessment and Plan: -[facility]. (Hard copy of test result on chart) -no complaints of shortness of breath, no respiratory distress -Continue droplet isolation and monitor respiratory status. Chest x-ray demonstrates some mild atelectasis right lung base. Encourage incentive spirometer. Supportive care. (7) Chronic pain: Qualifiers: Chronic pain type: other chronic pain Qualified Code(s): G89.29 - Other chronic pain Code(s): G89.29 - Other chronic pain Status: Chronic Assessment and Plan: -see above (8) GERD (gastroesophageal reflux disease): Qualifiers: Esophagitis presence: esophagitis presence not specified Qualified Code(s): K21.9 - Gastro-esophageal reflux disease without esophagitis Code(s): K21.9 - Gastro-esophag
--- NOTE | 2020-06-10 12:07 | PM.PNORT ---
Progress Note: A&P Assessment and Plan (1) History of fracture of right hip: Code(s): Z87.81 - Personal history of (healed) traumatic fracture Status: Acute Assessment and Plan: 74-year-old female postop day for ORIF right hip fracture. Not terribly cooperative at this point. Medical status this being optimized. Trying to do we can with therapy. Following. Subjective Subjective Date/Time Seen: 06/10/20 12:07 Post Op day: 4 Principal diagnosis: Status post ORIF right hip fracture Interval history: 74-year-old female postop day four right hip fracture stabilization. Medical status reviewed. Discussed with hospitalist. Exam Const: General: confusion and other (Uncooperative) Extrem: Other: Right hip wounds healing nicely. Very little swelling right leg. Grossly neurovascular status right lower extremity is intact. Objective Data Vital Signs Vital Signs: Vital Signs - 24 hr 06/09/20 16:00 06/09/20 20:00 06/10/20 00:00 Temperature 97.4 F L 98.4 F 98.5 F Pulse Rate 105 H 106 H 106 H Respiratory Rate 18 18 20 Blood Pressure 150/75 H 133/78 142/66 H Pulse Oximetry 94 90 92 06/10/20 04:00 06/10/20 08:00 06/10/20 10:00 Temperature 97.4 F L 97.8 F Pulse Rate 106 H 109 H Respiratory Rate 20 18 Blood Pressure 151/76 H 149/75 H Pulse Oximetry 93 92 93 Intake/Output Intake/Output: Intake & Output 06/07/20 06/08/20 06/09/20 06/10/20 23:59 23:59 23:59 23:59 Intake Total 3060 / 3060 400 / 400 450 / 450 200 / 200 Output Total 250 / 250 300 / 300 Balance 2810 / 2810 400 / 400 150 / 150 200 / 200 Meds/Results Medications: Active Medications Generic Name Dose Route Start Last Admin Trade Name Freq PRN Reason Stop Dose Admin Acetaminophen 1,000 mg 06/09/20 15:25 Acetaminophen 500 Mg Tablet PO Q6H PRN pain 1-6 Alprazolam 0.5 mg 06/07/20 16:37 06/07/20 21:18 Alprazolam (*Crx) 0.5 Mg Tablet PO 0.5 mg TID PRN Administration Anxiety Aspirin 325 mg 06/06/20 21:00 06/10/20 11:02 Aspirin 325 Mg Enteric Tablet PO Not Given Q12HR [facility] Docusate Sodium 100 mg 06/07/20 09:00 06/10/20 11:02 Docusate Sodium 100 Mg Capsule PO Not Given BID [facility] Duloxetine HCl 60 mg 06/05/20 11:15 06/10/20 11:02 Duloxetine Hcl 60 Mg Capsule.Dr PO Not Given DAILY [facility] Enoxaparin Sodium 30 mg 06/10/20 12:00 Enoxaparin 30 Mg/0.3 Ml Syringe SUB-Q DAILY [facility] Imipenem/Cilastatin Sodium 500 mg in 100 mls @ 300 mls/hr 06/09/20 18:00 06/10/20 05:45 Primaxin 500 Mg/D5w 100 Ml IVPB Infused Q6HR [facility] Infusion Dextrose 1,000 mls @ 50 mls/hr 06/10/20 11:44 Dextrose 10% IV CONT .Q20H PRN if PN is interrupted Amino Acids/Electrolytes/Dextrose 2,000 mls @ 80 mls/hr 06/10/20 14:00 Clinimix E 4.25%/5% Solution IV CONT .Q24H [facility] Protocol Potassium Chloride 100 mls @ 50 mls/hr 06/10/20 11:46 Potassium Chloride 20 Meq/Sw 100 Ml IVPB 06/10/20 13:45 ONCE ONE Magnesium Sulfate 2 gm in 50 mls @ 50 mls/hr 06/10/20 11:46 Magnesium Sulf 2 Gm/Water 50ml IVPB 06/10/20 12:45 ONCE ONE Magnesium Hydroxide 30 ml 06/06/20 19:01 Magnesium Hydroxide Susp 30 Ml Udc PO BID PRN Constipation Mirtazapine 30 mg 06/05/20 21:00 06/09/20 21:26 Mirtazapine 30 Mg Tablet PO Not Given HS [facility] Morphine Sulfate 2 mg 06/09/20 15:24 06/10/20 10:10 Morphine Sulfate (*Crx) 2 Mg/Ml Inj IV PUSH 2 mg Q4H PRN Administration Pain Rated 7-10 Naloxone HCl 0.1 mg 06/06/20 19:01 Naloxone Hcl 0.4 Mg/Ml Vial IV PUSH Q2M PRN Opiate Reversal Ondansetron HCl 4 mg 06/06/20 08:42 Ondansetron Inj 4 Mg/2 Ml Vial IV PUSH ONCE PRN Nausea Ondansetron HCl 4 mg 06/06/20 19:01 Ondansetron Inj 4 Mg/2 Ml Vial IV PUSH Q4H PRN Nausea And Vomiting Oxycodone HCl 60 mg 06/05/20 21:00 06/07/20 09:36 Oxycodone Hcl (*Crx) 20 Mg Tab Sr 12hr PO 60 mg Q1
[2020-06-10] MEDS: MAGNESIUM SULF 2 GM/WATER 50ML 2 GM/50 ML BAG IVPB (13:16)
--- NOTE | 2020-06-10 14:16 | ECG_ITS ---
Measurements Intervals [place] Rate: 115 P: 60 [place]: 123 QRS: 29 QRSD: 82 T: 77 QT: 326 QTc: 452 Interpretive Statements SINUS TACHYCARDIA BORDERLINE R WAVE PROGRESSION, ANTERIOR LEADS ST ABNORMALITY IN INF/LAT LEADS- CONSIDER ISCHEMIA BASELINE WANDER- I, II, III, AVR, AVL, AVF, V2, V5-V6 ABNORMAL ECG Electronically Signed On 06-10-2020 14:41:39 [employer] MANA[employer] BIOLOGIST by Joshua Doll D.O.
[2020-06-10] MEDS: GLUCAGON FOR INJ 1 MG VIAL (15:19)
[2020-06-10 15:24] LABS: Alveolar/Arterial O2 Gradient 620.8 mmHg; Base Excess ABG -16.5 mEq/l (+/-2.0); Fractional Inspired Oxygen 100 %; HCO3 ABG 10.9 mEq/l (22.0-26.0); Oxygen Content ABG 9.9 %vol (16.0-22.0); Oxyhemoglobin 80.5 % THb (90.0-100.0); PCO2 ABG 31.6 mmHg (35.0-45.0); PO2 ABG 60.6 mmHg (80.0-100.0); PO2 FiO2 Ratio Arterial Blood 0.61 %; Total Hemoglobin 8.7 g/dL (12.0-18.0)
[2020-06-10 15:29] LABS: Oxygen Saturation ABG 84.4 % (95.0-100.0); Site Drawn LEFT BRACHIAL; pH ABG 7.157 (7.350-7.450)
[2020-06-10 15:30] LABS: Device NON-REBREATHER MASK
[2020-06-10] MEDS: GLUCAGON FOR INJ 1 MG VIAL IM ×2 (15:41→15:43)
[2020-06-10] MEDS: DEXTROSE 50% 25 GM/50 ML SYRINGE (15:50)
[2020-06-10] MEDS: HEPARIN SOD/D5W 100 UNITS/ML 25,000 UNITS/250 ML BAG 8 UNITS IV CONT (15:58)
[2020-06-10 17:09] LABS: Glucose Point of Care < 20 (65-105)
[2020-06-10 17:10] LABS: Glucose Point of Care 32 (65-105)
[2020-06-10 17:10] LABS: Glucose Point of Care 226 (65-105)
[2020-06-10 17:10] LABS: Glucose Point of Care 20 (65-105)
[2020-06-10 19:07] LABS: Glucose Point of Care 105 (65-105)
[2020-06-10 22:25] LABS: Glucose Point of Care 54 (65-105)
--- NOTE | 2020-06-10 22:53 | PC.NURSE ---
2229- Notified Jenna MIRELES of finger stick blood sugar of 54mg/dl. i provided an update on patient's status with Vital signs. Pt is very lethargic. New lab orders received. I called and spoke with patient's son and KARYN Barrera. I gave him an update on patient's condition with vital signs and glucose. He and family have not yet made a decision on whether or not to make patient comfort measures only/Hospice. He would like us to treat her low glucose and blood pressure. I explained if he wanted TPN started she would require a central line. He does not want intubation or CPR. He wants to treat her hypotension with IV fluids. He wants an update in 1-2 hours. I attempted to call Jocy MIRELES-no answer. Message left. Continuing to monitor patient.
[2020-06-10] MEDS: DEXTROSE 50% 25 GM/50 ML SYRINGE IV PUSH (23:16)
[2020-06-10] MEDS: SODIUM CHLORIDE 0.9% IV 250 ML 100 ML IV CONT (23:19)
[2020-06-11] VITALS: BP 94/49; PULSE 104; PULSE 106; RESP 30; O2SAT 95
[2020-06-11 00:57] LABS: Glucose Point of Care 142 (65-105)
[2020-06-11 01:19] LABS: Hematocrit 26.3 % (37.0-47.0); Hemoglobin 7.7 g/dL (12.0-15.0); Mean Corpuscular HGB Conc 29.3 g/dl (32-36); Mean Corpuscular Hemoglobin 27.5 pg (26-34); Mean Corpuscular Volume 93.9 fl (80-100); Mean Platelet Volume 10.5 fl (7.4-10.4); Platelet Count Result 300 k/mm3 (150-375); Red Cell Distribution Width 16.7 % (11.5-14.5); White Blood Count 11.3 K/mm3 (4.5-10.0)
[2020-06-11 01:29] LABS: INR 1.7; Prothrombin Time 20.1 Seconds (11.1-14.7)
[2020-06-11 01:30] LABS: Partial Thromboplastin Time 62.4 SECONDS (22.3-36.8)
[2020-06-11 01:47] LABS: Alanine Aminotransferase 127 U/L (4-35); Albumin Level 2.6 g/dL (3.5-5.1); Alkaline Phosphatase 77 U/L (38-126); Anion Gap 23 mmol/L (8-16); Bilirubin,Total 2.1 mg/dL (0.2-1.3); Blood Urea Nitrogen 25 mg/dL (7-17); Calcium 8.8 mg/dL (8.4-10.2); Carbon Dioxide 16 mmol/L (22-30); Chloride 106 mmol/L (98-107); Estimated CRCL calculation 27 ml/min; Estimated Glomerular Filt Rate 31; Glucose 194 mg/dL (65-105); Magnesium 3.7 mg/dL (1.6-2.3); Potassium 3.8 mmol/L (3.4-5.0); Sodium 145 mmol/L (137-145)
[2020-06-11 01:55] LABS: NT Pro B Type Natriuretic Pept 9640 PG/ML (5-100); Troponin I 0.045 ng/mL (0.000-0.034)
[2020-06-11 02:01] LABS: Lactic Acid Reflex 17.5 mmol/L (0.7-2.1)
[2020-06-11 02:07] LABS: Transferrin < 80 mg/dL (206-381)
[2020-06-11 02:08] LABS: Aspartate Amino Transferase 901 U/L (14-36)
[2020-06-11 02:21] LABS: Band Neutrophils Percent 3 % (0-6); Lymphocytes Absolute Manual 2.03 K/mm3 (1.1-4.5); Monocytes Absolute Manual 0.56 K/mm3 (0.1-0.90); Monocytes Percent Manual 5 % (3-9); Neutrophils Percent Manual 74 % (46-73); Nucleated Red Blood Cells 26 %; Total Cells Counted 100
[2020-06-11 02:23] LABS: Platelet Estimate Adequate (Adequate)
[2020-06-11 02:24] LABS: Burr Cells 1+ (NORMAL); Large Platelets Present; Ovalocytes 1+ (NORMAL)
[2020-06-11 02:25] LABS: Hypochromasia 1+ (NORMAL)
[2020-06-11 02:58] VITALS: BP 88/42; PULSE 101; RESP 24; TEMP 36.2; O2SAT 92
[2020-06-11] MEDS: HEPARIN SODIUM 5,000 UNITS/ML VIAL 2500 UNITS IV PUSH (03:00)
[2020-06-11 04:00] VITALS: BP 70/40; PULSE 86; PULSE 98; RESP 30; TEMP 36.4; O2SAT 88
[2020-06-11 04:13] LABS: Reflex Lactic Acid Yes or No Add Lactic
--- NOTE | 2020-06-11 07:02 | P.DN_ITS ---
Discharge Sum: Prov Provider Primary care physician: Kimani Woodward M.D. Admitting provider: Cesar Gracia MD Attending physician on admission: Lucas Fitzpatrick Consults: 06/05/20 07:25 Consult to Physician Routine Comment: Consulting Provider: Sean Aguilar Reason for consultation: Right IT fracture Has provider been notified: No 06/10/20 11:44 Consult to Dietitian Routine Reason for Consult:: TPN Discharge Sum: Diag Contributing Factors (1) Bacteremia: (2) Acute metabolic encephalopathy: (3) Failure to thrive: (4) Unresponsive episode: (5) Closed right hip fracture: (6) COVID-19: (7) Chronic pain: (8) GERD (gastroesophageal reflux disease): (9) Depression: Discharge Sum: Summary Date and Time Date of admission: 06/05/20 00:15 Date of : 06/11/20 Time of : 06:44 Summary Details: Patient is a 74-year-old COVID-19 positive female who initially presented to the hospital for right hip fracture who underwent surgery with no immediate issues. In the postoperative time, the patient developed hypotensionAnd other signs infection. Blood cultures were drawn which were positive for ESBL. On review, the son states that she had a UTI that was resistant about a month prior to admission but thought it had improved. She was started on antibiotics but continued to decline. She stopped eating and did not communicate very much. There were times where she became unresponsive and was given Narcan which improved her state minimally. On 06/10/20 she became unresponsive again and EKG showed NSTEMI. Plan discussed with son who came and saw her and decided to continue with heparin and see how she does overnight. He understood the prognosis was very poor but did not want to proceed with hospice right away. The patient continued to worsen and 06/11/20. Additional Data Confirmation of as documented by pronouncing clinician: no pulse Family: contacted Attending physician: Elodia Weir PA-C Was code activated?: No Autopsy requested?: No supervisory examiner notified?: Yes Hospice patient?: No
--- NOTE | 2020-06-11 07:18 | PC.NURSE ---
0634 I was called to patient's room. Bradycardia on the manometer technician with pauses noted and some PVCs. Pt was unresponsive and pale with agonal respirations. No palpable pulse. No heart tones on auscultation. Patient's son Moy notified by phone. 0644 Agonal respirations ceased. No pulse/heartones or respirations found. 0700 I called patient's son Moy and made aware of her passing. He states he will return home instead of coming here. He states he will contact [facility] for arrangements. fisheries diver made aware. 0705 I called ext [phone]/Hospitalist line, I spoke with Rahel and notified of patient's expiration. PM and AM Charge RNs made aware.
--- NOTE | 2020-06-11 07:55 | PC.NURSE ---
0100 I called and spoke with patient's son Moy. Made aware of lab results and updated on condition. He is wanting to do further interventions for blood pressure support. I called and notified DR Hinson with lab results and update on patient's condition. He in turn called and spoke with the patient's son. Then I received a call back form Dr Hinson that we will continue present therapies and continue to monitor and keep the patient comfortable.
== END 2020-06-11 06:44 | disposition expired | DRG 480 ==
PROVIDERS: Orthopaedic Surgery; Physician Assistant; Admitting Provider Family Medicine; PCP Family Medicine; Visit Provider Physician Assistant
PROC: 0QS604Z Reposition Right Upper Femur with Internal Fixation Device, Open Approach (ICD-10-PCS; CPT 27245; principal; 2020-06-06 16:00)
DX: S72.001A Fracture of unspecified part of neck of right femur, initial encounter for closed fracture (principal); U07.1 COVID-19; G93.41 Metabolic encephalopathy; R78.81 Bacteremia; K21.9 Gastro-esophageal reflux disease without esophagitis; F32.9 Major depressive disorder, single episode, unspecified; S72.101A Unspecified trochanteric fracture of right femur, initial encounter for closed fracture; W19.XXXA Unspecified fall, initial encounter; Z66 Do not resuscitate; R62.7 Adult failure to thrive; Z68.23 Body mass index [BMI] 23.0-23.9, adult
CPT/HCPCS: 36415; 36600; 70450; 71045; 74019; 80048; 80053; 80076; 81001; 82140; 82375; 82805; 83050; 83605; 83735; 83880; 84439; 84443; 84466; 84480; 84484; 85025; 85027; 85055; 85610; 85730; 86140; 87040; 87077; 87186; 93005; 97110; 97161; 97165; 97530; A9270; C1713; C9113; J0131; J0690; J0743; J1100; J1170; J1610; J1644; J2270; J2310; J2405; J2704; J3010; J3475; J3480; J7030; J7050; J7120